=== PATIENT | female | born 1995 | race Caucasian/White ===

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

== ENCOUNTER 2017-02-15 17:52 | Outpatient (CLI) | payer SELFPAY ==
--- NOTE | 2017-02-17 11:50 | Physician Query-Final Dx ---
QIANA MENDIOLA 02/17/17 1150: Clinic Account Progress/Dx Physician Query: Please give diagnosis Date of Service Feb 15, 2017 at 17:52 ORESTES ESPOSITO MD 02/21/17 0736: Clinic Account Progress/Dx DIAGNOSIS: Diagnosis 1. IUP at 29 weeks, non-labor 2. Uterine irritability QIANA MENDIOLA Feb 17, 2017 11:50 ORESTES ESPOSITO MD Feb 21, 2017 07:36
== END 2017-02-15 18:42 | disposition home or self-care (01) ==
LOC: WSo 17:52 → LDRP 17:55 → WSo 18:42
PROVIDERS: ATTEND Family Medicine
DX: O99.89 Other specified diseases and conditions complicating pregnancy, childbirth and the puerperium (principal); N85.8 Other specified noninflammatory disorders of uterus; Z3A.29 29 weeks gestation of pregnancy
CPT/HCPCS: 99212

== ENCOUNTER → 2017-02-28 | Outpatient (CLI) | payer MEDICAID ==
--- NOTE | 2017-02-28 16:31 | Diagnostic Imaging Report ---
INDICATION: anatomy survey. TECHNIQUE: Multiple real-time grayscale images were obtained over the gravid uterus. COMPARISON: 10/15/2016 FINDINGS: There is a single live intrauterine with heart rate of 127 beats per minute. Fetus is in cephalic presentation. The placenta is anteriorly located. There is no placenta previa or abruption. anatomy survey was performed and the following structures were visualized and normal: Three-vessel cord, cerebral ventricles, cerebellum and cisterna magna, four-chamber heart, stomach, kidneys, urinary bladder, umbilical cord insertion. The spine and limbs were not well visualized due to positioning. Biometrical measurements are as follows: Biparietal 7.51 cm, age 30 weeks 1 days. Head circumference 27.15 cm, age 29 weeks 5 days. Abdominal circumference 26.48 cm, age 30 weeks 5 days. Femur length 5.7 cm, age 30 weeks 0 days. Sonographic estimate age: 30 weeks 1 days. Sonographic estimated date of delivery: 05/08/2017. Estimated Weight: 1537 gm (+/- 224 gm). LMP percentile: 94%. heart rate: 127 beats per minute. number: 1 of 1. IMPRESSION: 1. Normal anatomy survey with the exception of suboptimal visualization of the spine and limbs. 2. Please see above for biometric data. Dictated by: Dictated on workstation # [id number]
== END ==
LOC: RAD 13:45
PROVIDERS: ATTEND Family Medicine
DX: Z36 Encounter for antenatal screening of mother (principal); Z3A.30 30 weeks gestation of pregnancy
CPT/HCPCS: 76805

== ENCOUNTER 2017-03-22 12:32 | Outpatient (CLI) | payer MEDICAID ==
[~2017-03-22] VITALS: Ht 162.6 cm; Wt 71.4 kg
[2017-03-22 13:00] VITALS: BP 111/56
[2017-03-22 13:00] LABS: BILIRUBIN,URINE NEGATIVE (NEGATIVE); KETONES,URINE NEGATIVE (NEGATIVE); LEUKOCYTE ESTERASE ,URINE 2+ (NEGATIVE); NITRITE,URINE NEGATIVE (NEGATIVE); PH,URINE 6 (5-9); PROTEIN,URINE NEGATIVE (NEGATIVE); UROBILINOGEN,URINE NORMAL (NORMAL)
--- NOTE | 2017-03-25 13:30 | Physician Query-Final Dx ---
QIANA MENDIOLA 03/25/17 1330: Clinic Account Progress/Dx Physician Query: Please give diagnosis Date of Service Mar 22, 2017 at 12:32 MATHEUS JUAREZ MD 03/31/17 1309: Clinic Account Progress/Dx DIAGNOSIS: Diagnosis Contractions 3rd trimester Diarrhea with dehydration QIANA MENDIOLA Mar 25, 2017 13:30 MATHEUS JUAREZ MD Mar 31, 2017 13:09
== END 2017-03-22 13:45 | disposition home or self-care (01) ==
LOC: LDRP 12:32 → WSo 12:32
PROVIDERS: ATTEND Family Medicine
DX: O47.03 False labor before 37 completed weeks of gestation, third trimester (principal); Z3A.31 31 weeks gestation of pregnancy; R19.7 Diarrhea, unspecified; O99.283 Endocrine, nutritional and metabolic diseases complicating pregnancy, third trimester; E86.0 Dehydration
CPT/HCPCS: 81000; 87088; 99212

== ENCOUNTER 2017-04-01 21:36 | Outpatient (CLI) | payer MEDICAID ==
[~2017-04-01] VITALS: Ht 162.6 cm; Wt 73.1 kg
[2017-04-01 21:54] VITALS: BP 119/69
[2017-04-01 22:11] LABS: BILIRUBIN,URINE NEGATIVE (NEGATIVE); KETONES,URINE NEGATIVE (NEGATIVE); LEUKOCYTE ESTERASE ,URINE 3+ (NEGATIVE); NITRITE,URINE NEGATIVE (NEGATIVE); PH,URINE 6.5 (5-9); PROTEIN,URINE NEGATIVE (NEGATIVE); UROBILINOGEN,URINE NORMAL (NORMAL)
[2017-04-01] MEDS ORDERED: CEPHALEXIN 250 MG (KEFLEX) CAP PO ONE ×2 (22:59→23:15)
[2017-04-01] MEDS ORDERED: CEPH-507 PO (23:07)
--- NOTE | 2017-04-02 10:40 | Physician Query-Final Dx ---
THANG RAHMAN 04/02/17 1040: Clinic Account Progress/Dx Physician Query: Please give diagnosis Date of Service Apr 01, 2017 at 21:36 MATHEUS JUAREZ MD 04/04/17 1117: Clinic Account Progress/Dx DIAGNOSIS: Diagnosis Third trimester Cramping THANG RAHMAN Apr 02, 2017 10:40 MATHEUS JUAREZ MD Apr 04, 2017 11:17
[2017-05-14] MEDS ORDERED: BENZ56AE2 TP (08:32)
[2017-05-14] MEDS ORDERED: IBUP-1773 PO (08:32)
== END 2017-04-01 23:17 | disposition home or self-care (01) ==
LOC: LDRP 21:36 → WSo 21:36
PROVIDERS: ATTEND Family Medicine
DX: R10.2 Pelvic and perineal pain (principal); Z3A.33 33 weeks gestation of pregnancy
CPT/HCPCS: 81000; 87088; 99214

== ENCOUNTER 2017-04-18 14:40 | Outpatient (CLI) | payer MEDICAID ==
[~2017-04-18] VITALS: Ht 162.6 cm; Wt 75.3 kg
[2017-04-18 15:00] VITALS: BP 127/66
[2017-04-18 15:20] LABS: BILIRUBIN,URINE NEGATIVE (NEGATIVE); KETONES,URINE NEGATIVE (NEGATIVE); LEUKOCYTE ESTERASE ,URINE 1+ (NEGATIVE); NITRITE,URINE NEGATIVE (NEGATIVE); PH,URINE 6.5 (5-9); PROTEIN,URINE 1+ (NEGATIVE); UROBILINOGEN,URINE NORMAL (NORMAL)
[2017-04-18 15:36] VITALS: BP 118/56
[2017-04-18] MEDS ORDERED: RANI150T90 PO (16:12)
[2017-04-18] MEDS ORDERED: hydrOXYzine (VISTARIL) 25 MG CAP PO NR (16:15)
[2017-04-18] MEDS ORDERED: FLUC150T PO (16:20)
[2017-04-18 16:25] VITALS: BP 118/56
[2017-04-20] MEDS ORDERED: INFLUENZA TRIvalent 2017-2018 0.5 ML/45 MCG SYR IM ONE (09:00)
--- NOTE | 2017-04-21 14:20 | Physician Query-Final Dx ---
QIANA MENDIOLA 04/21/17 1420: Clinic Account Progress/Dx Physician Query: Please give diagnosis Date of Service Apr 18, 2017 at 14:40 HAO MCKOY DO 04/26/17 1655: Clinic Account Progress/Dx DIAGNOSIS: Diagnosis Threatened Labor QIANA MENDIOLA Apr 21, 2017 14:20 HAO MCKOY DO Apr 26, 2017 16:55
== END 2017-04-18 16:25 | disposition home or self-care (01) ==
LOC: WSo 14:40 → LDRP 14:43 → WSo 16:25
PROVIDERS: ATTEND Family Medicine
DX: O47.03 False labor before 37 completed weeks of gestation, third trimester (principal); Z3A.35 35 weeks gestation of pregnancy
CPT/HCPCS: 81000; 87088; 99213

== ENCOUNTER 2017-05-12 01:21 | Inpatient (IN) | payer MEDICAID ==
[~2017-05-12] VITALS: Ht 162.6 cm; Wt 80.3 kg
[2017-05-12] VITALS (52 sets, daily range): BP systolic 111–169; BP diastolic 55–89
[~2017-05-12 01:21] MED LIST changes: +FLUC150T PO; +RANI150T90 PO
[2017-05-12] MEDS ORDERED: INFLUENZA TRIvalent 2017-2018 0.5 ML/45 MCG SYR IM ONE (07:00)
[2017-05-12] MEDS ORDERED: LACTATED RINGERS 1,000 ML IV ONE ×3 (07:40→15:35)
[2017-05-12] MEDS ORDERED: D5 LR IV SOLUTION 1,000 ML IV ONE (07:40)
[2017-05-12] MEDS: D5 LR IV SOLUTION 1,000 ML IV SCH ×2 (08:15→16:00)
[2017-05-12] MEDS ORDERED: MINERAL OIL CONCENTRATE 99.9% 15 ML UDC TOP PRN (08:30)
[2017-05-12 08:34] LABS: BASOPHILS % (AUTO) 0 % (0-10); EOSINOPHILS # (AUTO) 0.3 10^3/uL (0.0-0.3); EOSINOPHILS % (AUTO) 2 % (0-10); LYMPHOCYTES # (AUTO) 3.5 X 10^3 (1.0-4.0); LYMPHOCYTES % (AUTO) 20 % (12-44); MEAN CORPUSCULAR HEMOGLOBIN 31 PG (25-34); MEAN CORPUSCULAR HGB CONC 35 G/DL (32-36); MEAN CORPUSCULAR VOLUME 90 FL (80-99); MEAN PLATELET VOLUME 10.8 FL (7.4-10.4); MONOCYTES # (AUTO) 1.4 X 10^3 (0.0-1.0); MONOCYTES % (AUTO) 8 % (0-12); NEUTROPHILS # (AUTO) 12.4 X 10^3 (1.8-7.8); NEUTROPHILS % (AUTO) 70 % (42-75); PLATELET COUNT 235 10^3/uL (130-400); RED BLOOD COUNT 3.82 10^6/uL (4.35-5.85); RED CELL DISTRIBUTION WIDTH 12.7 % (10.0-14.5); WHITE BLOOD COUNT 17.6 10^3/uL (4.3-11.0)
--- OUTSIDE RECORDS SUMMARY | 2017-05-12 08:50 | XMS REPORT ---
Author Author TAY FOURNIER [facility] Address [address] [place] [address] Care Team Providers Care Postal Transportation Clerk Name Role Phone TAY FOURNIER Unavailable PROBLEMS Type Condition ICD9-CM Code MVB34-ED Code Onset Dates Condition Status SNOMED Code Problem Excessive and frequent menstruation with irregular cycle N92.1 Active 713077864 Problem Alcohol dependence, uncomplicated F10.20 Active 46464135 Problem Subacute vaginitis N76.1 Active 77157238579814054 Problem Bipolar disorder, unspecified F31.9 Active 06301886 Problem Fatigue R53.83 Active 36387204 Problem Poor weight gain in adult R62.7 Active 15727182 Problem Mood disorder F39 Active 65530103 Problem High risk sexual behavior Z72.51 Active 170581850 ALLERGIES Unknown Allergies SOCIAL HISTORY No smoking Hx information available PLAN OF CARE VITAL SIGNS MEDICATIONS Unknown Medications RESULTS No Results PROCEDURES Procedure Date Ordered Related Diagnosis Body Site FLUARIX QUAD P-FREE 3 AND UP .50 2015Jul 10, 2016 SINGLE IMMUNIZATION ADMIN Jul 10, 2016 IMMUNIZATIONS Vaccine Route Administration Date Status FLUARIX QUAD P-FREE 3 AND UP .50 2015 IM Intramuscular Jul 10, 2016 Administered
--- OUTSIDE RECORDS SUMMARY | 2017-05-12 08:50 | XMS REPORT ---
Author Author DARIN TRIPATHI Organization [facility] Address [address] [place] [address] Care Team Providers Care Lead Installer Name Role Phone DARIN TRIPATHI Unavailable PROBLEMS Type Condition ICD9-CM Code MOC30-FB Code Onset Dates Condition Status SNOMED Code Problem Excessive and frequent menstruation with irregular cycle N92.1 Active 728781470 Problem Fatigue R53.83 Active 73305548 Problem Poor weight gain in adult R62.7 Active 18613032 Problem Alcohol dependence, uncomplicated F10.20 Active 36949436 Problem Dental examination Z01.20 Active 103554275 Problem Gastro-esophageal reflux disease without esophagitis K21.9 Active 282855554 Problem Mood disorder F39 Active 37560169 Problem High risk sexual behavior Z72.51 Active 815835507 Problem Subacute vaginitis N76.1 Active 33521593418101724 Problem Bipolar disorder, unspecified F31.9 Active 98923894 ALLERGIES Substance Reaction Event Type Date Status N.K.D.A. Unknown Non Drug Allergy Jul, Unknown SOCIAL HISTORY No smoking Hx information available PLAN OF CARE Activity Details Follow Up prn Reason: VITAL SIGNS Height 64 in 2016-08-07 Weight 122.8 lbs 2016-08-07 Temperature 98.2 degrees Fahrenheit 2016-08-07 Heart Rate 80 bpm 2016-08-07 Respiratory Rate 18 2016-08-07 BMI 21.08 kg/m2 2016-08-07 Blood pressure systolic 110 mmHg 2016-08-07 Blood pressure diastolic 70 mmHg 2016-08-07 MEDICATIONS Medication Instructions Dosage Frequency Start Date End Date Duration Status Diflucan 150 MG Orally Once a day 1 tablet 24h Jul, Jul, 7 days Active Flonase Allergy Relief 50 MCG/ACT Nasally twice per day 1 spray in each nostril Jul, 30 day(s) Active Cetirizine HCl 10 MG Orally Once a day 1 tablet 24h Jul, Aug, 30 day(s) Active RESULTS Name Result Date Reference Range CULTURE, GENITAL 2016-08-07 Genital Culture, Routine Final report Result 1 TRICHOMONAS (IN HOUSE) 2016-08-07 TRICHOMONAS Negative Control + Lot # [id number] Exp date 01/2017 UA LONG DIP (IN HOUSE) 2016-08-07 Lot # [id number] Exp date 2017 Clarity clear Color yellow Odor none GLU negative ALICIA negative KET negative SG >1.030 BLO negative pH 5.5 Protein negative URO 0.2 NIT negative LILY negative Lot # [id number] Exp date 2017 08 BACTERIAL VAGINOSIS (IN HOUSE) 2016-08-07 RESULTS Negative Control + Lot # [id number] Exp date 11/2016 GC/CHLAM URINE (STATE) 2016-08-07 CHLAMYDIA Negative GC Negative PROCEDURES Procedure Date Ordered Related Diagnosis Body Site URINALYSIS, AUTO, W/O SCOPE Aug 07, 2016 [place] VAG, DNA, DIR PROBE Aug 07, 2016 Office Visit, Est Pt., Level 3 Aug 07, 2016 LAB NOT BILLED BY [facility] Aug 07, 2016 IMMUNIZATIONS No Known Immunizations
[2017-05-12 09:14] LABS: BAND NEUTROPHILS 6 %; EOSINOPHILS % (MANUAL) 2 %; LYMPHOCYTES % (MANUAL) 24 %; NEUTROPHILS % (MANUAL) 61 %
--- NOTE | 2017-05-12 11:36 | Progress Note (SOAP) ---
Subjective Subjective/Events-last exam Pt presented to labor and delivery earlier this morning with report of regular and painful contractions. She has slowly made cervical change, and had good bloody show. She reports the contractions are painful, but tolerable. She reports that she feels good movement. , 38 6/7 wks gestation, obstetric care provided by Dr. Schultz. Review of Systems Date Seen by Provider: May 12, 2017 Time Seen by Provider: 07:45 General: No Chills, No Night Sweats, No Fatigue HEENT: No Head Aches, No Visual Changes, No Eye Pain, No Ear Pain, No Dysphasia Pulmonary: No Dyspnea, No Cough Cardiovascular: Edema (trace), No: Chest Pain, Palpitations Gastrointestinal: No: Nausea, Vomiting, Abdominal Pain, Diarrhea Genitourinary: No Dysuria, No Frequency Musculoskeletal: back pain Neurological: No: Weakness, Numbness, Incoordination, Change in speech, Seizures Objective Exam Last Set of Vital Signs Vital Signs Date Time Temp Pulse Resp B/P (MAP) Pulse Ox O2 Delivery O2 Flow Rate FiO2 05/12/17 09:48 97 20 137/67 05/12/17 07:50 98.6 05/12/17 04:58 Room Air Capillary Refill : General: Alert, Oriented X3, Cooperative, No Acute Distress HEENT: Atraumatic, PERRLA, EOMI, Mucous Memb Moist/[place] Neck: Supple, No Thyromegaly Extremities: No Clubbing, No Cyanosis, Normal Pulses, No Tenderness/Swelling Skin: No Rashes, No Significant Lesion Neuro: Normal Gait, Normal Speech, Normal Tone, Sensation Intact Psych/Mental Status: Mental Status NL, Mood NL Other physical findings Palpable movement. Contractions palpate moderate to strong every 2-7 minutes. SVE 4-5/90/0 with BBOW and good bloody show. Results/Procedures Lab Laboratory Tests 05/12/17 07:55: White Blood Count 17.6H, Red Blood Count 3.82L, Hemoglobin 11.8, Hematocrit 34L , Mean Corpuscular Volume 90, Mean Corpuscular Hemoglobin 31, Mean Corpuscular Hemoglobin Concent 35, Red Cell Distribution Width 12.7, Platelet Count 235, Mean Platelet Volume 10.8H, Neutrophils (%) (Auto) 70, Lymphocytes (%) (Auto) 20 , Monocytes (%) (Auto) 8, Eosinophils (%) (Auto) 2, Basophils (%) (Auto) 0, Neutrophils # (Auto) 12.4H, Lymphocytes # (Auto) 3.5, Monocytes # (Auto) 1.4H, Eosinophils # (Auto) 0.3, Basophils # (Auto) 0.0, Neutrophils % (Manual) 61, Lymphocytes % (Manual) 24, Monocytes % (Manual) 7, Eosinophils % (Manual) 2, Band Neutrophils 6, Blood Morphology Comment NORMAL Assessment/Plan Assessment/Plan Admission Dx Active Labor Term Gestation, 38 6/7 wks Teen Plan -, head well applied to cervix. Dr. Schultz notified. FHR reassuring and reactive. Patient reports that she is not planning to have an epidural. Clinical Quality Measures DVT/VTE Risk/Contraindication: Risk Factor Score Per Nursin RFS Level Per Nursing on Admit: 1=Low/No VTE PPX HAO MCKOY DO May 12, 2017 11:36
--- NOTE | 2017-05-12 11:44 | Progress Note (SOAP) ---
Subjective Subjective/Events-last exam Pt reports that contractions remain painful, but she is tolerating them well. Minimal change in SVE over the last [address] Schultz has been updated and requested AROM -- patient is agreeable. FHR reassuring and reactive, somewhat difficult to trace based on maternal size and position. Review of Systems Date Seen by Provider: May 12, 2017 Time Seen by Provider: 11:13 General: No Chills, No Night Sweats, No Fatigue HEENT: No Head Aches, No Visual Changes, No Eye Pain, No Ear Pain, No Sore Throat Pulmonary: No Dyspnea, No Cough Cardiovascular: No: Chest Pain, Palpitations, Lt Headedness Gastrointestinal: No: Nausea, Vomiting, Diarrhea, Constipation Genitourinary: No Dysuria, No Frequency Musculoskeletal: back pain Neurological: No: Weakness, Numbness, Incoordination, Confusion Objective Exam Last Set of Vital Signs Vital Signs Date Time Temp Pulse Resp B/P (MAP) Pulse Ox O2 Delivery O2 Flow Rate FiO2 05/12/17 09:48 97 20 137/67 05/12/17 07:50 98.6 05/12/17 04:58 Room Air Capillary Refill : General: Alert, Oriented X3, Cooperative, No Acute Distress HEENT: Atraumatic, EOMI, Mucous Memb Moist/[place] Neck: Supple, No Thyromegaly Abdomen: Soft, No Tenderness, No Hepatosplenomegaly Extremities: No Clubbing, No Cyanosis, Normal Pulses Skin: No Rashes, No Significant Lesion Neuro: Normal Gait, Normal Speech, Strength at 5/5 X4 Ext, Normal Tone, Sensation Intact Psych/Mental Status: Mental Status NL, Mood NL Other physical findings SVE 6/95/0, head well applied. AROM with small amount of clear fluid noted. FSE placed without difficulty to make the tracing of FHR easier and more accurate. Results/Procedures Lab Laboratory Tests 05/12/17 07:55: White Blood Count 17.6H, Red Blood Count 3.82L, Hemoglobin 11.8, Hematocrit 34L , Mean Corpuscular Volume 90, Mean Corpuscular Hemoglobin 31, Mean Corpuscular Hemoglobin Concent 35, Red Cell Distribution Width 12.7, Platelet Count 235, Mean Platelet Volume 10.8H, Neutrophils (%) (Auto) 70, Lymphocytes (%) (Auto) 20 , Monocytes (%) (Auto) 8, Eosinophils (%) (Auto) 2, Basophils (%) (Auto) 0, Neutrophils # (Auto) 12.4H, Lymphocytes # (Auto) 3.5, Monocytes # (Auto) 1.4H, Eosinophils # (Auto) 0.3, Basophils # (Auto) 0.0, Neutrophils % (Manual) 61, Lymphocytes % (Manual) 24, Monocytes % (Manual) 7, Eosinophils % (Manual) 2, Band Neutrophils 6, Blood Morphology Comment NORMAL Assessment/Plan Assessment/Plan Admission Dx Active Labor Term Gestation, 38 6/7 wks Teen Plan 0745: 4-/0, head well applied to cervix. Dr. Schultz notified. FHR reassuring and reactive. Patient reports that she is not planning to have an epidural. Breathing well through contractions. 11:00: SVE by RN - bloody show, but no significant chnage from prior exam. Patient would like to try and speed things up. Dr. Schultz contacted, notified that minimal cervical change from last exam. Okay to AROM. 11:13: SVE 6/95/0, AROM with amnihook and small amount of clear fluid with mild blood tinge noted. FSE placed per nurse request; difficulty tracing FHR due to maternal size and position. Placed without difficulty. Dr. Schultz updated. Will manage patient from this point on. Clinical Quality Measures DVT/VTE Risk/Contraindication: Risk Factor Score Per Nursin RFS Level Per Nursing on Admit: 1=Low/No VTE PPX HAO MCKOY DO May 12, 2017 11:44
[2017-05-12] MEDS ORDERED: CATHETER FLUSH 10 ML SYR IV SCH ×2 (14:00→22:00)
[2017-05-12] MEDS ORDERED: SUFENTA 0.6MCG/ML BUPIVA 0.125 100 ML ONE (14:06)
[2017-05-12] MEDS ORDERED: BUPIVACAINE 0.25% 30 ML (SENSORCAINE) VIAL ONE (14:51)
[2017-05-12] MEDS ORDERED: LIDOCAINE PF 2% 5 ML (XYLOCAINE) VIAL ONE (14:51)
[2017-05-12] MEDS ORDERED: fentaNYL INJECTION 100 MCG/2 ML AMP ONE (14:51)
[2017-05-12] MEDS ORDERED: EPIDURAL (SUFENTA 0.6MCG/ML BUPIVA 0.125%) 100 ML BAG EPI PRN (15:45)
[2017-05-12] MEDS ORDERED: ONDANSETRON 4 MG/2 ML (SDV) Z0FRAN IV PRN (15:45)
[2017-05-12] MEDS ORDERED: NALOXONE 0.4 MG/ML 1 ML (NARCAN) VIAL IV PRN (15:45)
[2017-05-12] MEDS ORDERED: OXYTOCIN/NORMAL SALINE 500 ML IV SCH ×2 (16:00→20:28)
[2017-05-12] MEDS ORDERED: LIDOCAINE/EPI 2% 1:200,00 (XYLOCAINE) 10 ML VIAL ONE (19:02)
--- NOTE | 2017-05-12 20:17 | History & Physical-OB ---
OB - Chief Complaint & HPI Date/Time Date of Admission: Date of Admission: May 12, 2017 at 07:50 Time Seen by Provider: 18:02 Chief Complaint/History OB-Reason for Admission/Chief: Onset of Labor Hx : 1 Hx Para: 0 Expected Date of Delivery: May 20, 2017 Gestational Age in Weeks: 38 Allergies and Home Medications Allergies Coded Allergies: No Known Drug Allergies (Unverified , 12/05/13) Home Medications Pnv95/Ferrous Fumarate/FA 1 Each Tablet, 1 EACH PO DAILY, (Reported) Ranitidine HCl 150 Mg Tablet, 150 MG PO TID, (Reported) OB - History Hx of Present Care: Yes Information Induced Hypertension: No Maternal Gestational Diabetes: No Hemorrhage: No Obstetrical History Hx : 1 Hx Para: 0 Hx Total # of Abortions (Spona: 0 Delivery History Hx Blood Disorders: No Adverse Rxn to Tranfusion: No Patient Past Medical History DEPRESSION PTSD Social History/Family History HIV/AIDS: No Recent Infectious Disease Expo: No Sexually Transmitted Disease: No Alcohol Use: Denies Use Recreational Drug Use: No Immunizations Hepatitis A: Yes Hepatitis B: Yes Tetanus Booster (TDap): Less than 5yrs (03/13/17) Rubella: immune RPR/VDRL: Negative GBS Status: Negative HBsAG: Negative OB - Admission Exam Physical Exam Vitals: Vital Signs 05/12/17 05/12/17 16:50 18:30 Temp 97.8 Pulse 96 Resp 20 B/P (MAP) 115/56 Pulse Ox 98 O2 Delivery Room Air HEENT: NCAT Heart: Rhythm Normal Lungs: Clear Abdomen: Soft Extremities: Normal Reflexes: Normal Cervical Dilatation: 8cm Effacement: 100% Station: 0 Membranes: Ruptured Amniotic Fluid: Clear Accelerations: Accelerations Present Decelerations: No Decelerations Manager Search Variability: Average (6-25) Contractions on Admission: < 5 Minutes Apart Labs Laboratory Tests Test 05/12/17 07:55 Range/Units White Blood Count 17.6 H 4.3-11.0 10^3/uL Red Blood Count 3.82 L 4.35-5.85 10^6/uL Hemoglobin 11.8 11.5-16.0 G/DL Hematocrit 34 L 35-52 % Mean Corpuscular Volume 90 80-99 FL Mean Corpuscular Hemoglobin 31 25-34 PG Mean Corpuscular Hemoglobin Concent 35 32-36 G/DL Red Cell Distribution Width 12.7 10.0-14.5 % Platelet Count 235 130-400 10^3/uL Mean Platelet Volume 10.8 H 7.4-10.4 FL Neutrophils (%) (Auto) 70 42-75 % Lymphocytes (%) (Auto) 20 12-44 % Monocytes (%) (Auto) 8 0-12 % Eosinophils (%) (Auto) 2 0-10 % Basophils (%) (Auto) 0 0-10 % Neutrophils # (Auto) 12.4 H 1.8-7.8 X 10^3 Lymphocytes # (Auto) 3.5 1.0-4.0 X 10^3 Monocytes # (Auto) 1.4 H 0.0-1.0 X 10^3 Eosinophils # (Auto) 0.3 0.0-0.3 10^3/uL Basophils # (Auto) 0.0 0.0-0.1 10^3/uL Neutrophils % (Manual) 61 % Lymphocytes % (Manual) 24 % Monocytes % (Manual) 7 % Eosinophils % (Manual) 2 % Band Neutrophils 6 % Blood Morphology Comment NORMAL OB - Assessment/Plan/Diagnosis Assessment Assessment: active labor Plan Plan: Expectant Management Other Plan 21 yo G1 @ 38.6 wga here for active labor Plan - Epidural, pain well controlled - Started Pit at 4 PM - Expectant management for vaginal delivery - GBS neg Copy Copies To 1: MATHEUS JUAREZ MD, HOLLY R MD May 12, 2017 20:17
[2017-05-12] MEDS ORDERED: WITCH HAZEL(TUCKS) 40 EA JAR TOP PRN (20:30)
[2017-05-12] MEDS ORDERED: BENZOCAINE/MENTHOL (DERMOPLAST) 56 ML CAN TP PRN (20:30)
--- NOTE | 2017-05-12 20:36 | OB Labor & Delivery Record ---
Vag Delivery Note Vag Delivery Note Date of Delivery: 05/12/17 Preoperative Diagnosis: Kerry Apodaca is a (21 /Para 1 / 0,Gestational Age (wks)38.6with onset of labor Postoperative Diagnosis: Same Surgeon: MATHEUS JUAREZ Sales Representative Sales Manager: [Atif Mace, MS3] Anesthesia: [Epidural] Delivery Type: [ augmented with Pitocin] Findings: [Term male , intact placenta, 1st degree perineal tear] Viable [male] , apgars [8/9], weight [3770 grams/ 8#5] Lacerations: 1st degree perineal tear that did not require repair Intact placenta with 3 vessel cord. No nuchal cord, body cord or shoulder dystocia Pitocin started at delivery of for hemorrhage prophylaxis Estimated Blood Loss: [200] ml Complications: None Condition: Stable Description of Procedure: The patient is a G1 now P1 @ 38.6 wga who presented in active labor. She was admitted and informed consent was obtained. Her labor course was remarkable for normal course. She progressed to complete dilatation and began to push. She was then set up for delivery. The 's head was delivered atraumatically in the STEPHANY position. The shoulders and remainder of the 's body were then delivered without difficulty. Upon delivery, the head was held below the level of the perineum and the mouth and nares were bulb suctioned. placed on mother's abdomen. The cord was doubly clamped after 1 min of delayed cord clamping. An intact placenta with 3-vessel cord delivered via Jana and there was found to be minimal bleeding.~ Vigorous fundal massage was performed and the fundus was found to be firm. IV oxytocin was given wide open. Examination of the vagina and perineum revealed a 1st degree perineal laceration that did not require repair. Following the repair, sponge, instrument and needle counts were correct. Mom and baby were both in stable condition in the labor suite. Vitals - Labs Vital Signs - I&O Vital Signs Date Time Temp Pulse Resp B/P (MAP) Pulse Ox O2 Delivery O2 Flow Rate FiO2 05/12/17 18:30 96 20 115/56 98 Room Air 05/12/17 18:15 86 20 148/63 98 Room Air 05/12/17 17:50 95 20 125/71 98 Room Air 05/12/17 17:35 97 20 130/59 97 Room Air 05/12/17 17:20 91 18 130/59 98 Room Air 05/12/17 17:05 83 16 120/68 98 Room Air 05/12/17 16:50 97.8 88 16 126/60 97 Room Air 05/12/17 16:35 83 18 136/63 97 Room Air 05/12/17 16:30 90 18 169/67 98 Room Air 05/12/17 16:15 86 18 169/67 Room Air 05/12/17 16:10 90 18 116/65 98 Room Air 05/12/17 16:00 85 18 130/78 98 Room Air 05/12/17 15:50 96 16 137/60 98 Room Air 05/12/17 15:45 93 16 122/58 98 Room Air 05/12/17 15:40 95 16 123/69 99 Room Air 05/12/17 15:35 98 16 121/66 99 Room Air 05/12/17 15:30 84 18 120/65 97 Room Air 05/12/17 15:25 79 18 113/55 98 Room Air 05/12/17 15:20 71 20 121/58 98 Room Air 05/12/17 15:15 86 20 160/70 94 Room Air 05/12/17 15:10 97 22 141/77 99 Room Air 05/12/17 14:45 94 18 133/62 05/12/17 14:30 109 18 155/87 05/12/17 14:15 85 18 127/70 05/12/17 14:00 89 18 125/69 05/12/17 13:45 87 18 122/66 05/12/17 13:30 85 20 125/66 05/12/17 13:15 102 20 117/89 05/12/17 13:00 120 20 157/74 05/12/17 12:45 97.8 95 18 138/58 05/12/17 12:15 95 18 138/58 05/12/17 12:00 95 18 138/58 05/12/17 11:50 93 18 129/79 05/12/17 11:30 93 18 132/87 05/12/17 11:20 89 18 133/70 05/12/17 10:50 94 20 124/82 05/12/17 10:20 85 20 117/57 05/12/17 09:48 97 20 137/67 05/12/17 09:20 88 20 129/60 05/12/17 08:50 88 20 111/80 05/12/17 07:50 98.6 86 20 117/65 05/12/17 04:58 81 18 149/70 Room Air 05/12/17 01:33 98.1 88 18 140/78 Room Air I & O 05/13/17 07:00 Intake Total 2000 ml Balance 2000 ml Labs Laboratory Tests 05/12/17 07:55: White Blood Count 17.6H, Red Blood Count 3.82L, Hemoglobin 11.8, Hematocrit 34L , Mean Corpuscular Volume 90, Mean Corpuscular Hemoglobin 31, Mean Corpuscular Hemoglobin Concent 35, Red Cell Distribution Width 12.7, Platelet Count 235, Mean Platelet Volume 10.8H, Neutrophils (%) (Auto) 70, Lymphocytes (%) (Auto) 20 , Monocytes (%) (Auto) 8, Eosinophils (%) (Auto) 2, Basophils (%) (Auto) 0, Neutrophils # (Auto) 12.4H, Lymphocytes # (Auto) 3.5, Monocytes # (Auto) 1.4H, Eosinophils # (Auto) 0.3, Basophils # (Auto) 0.0, Neutrophils % (Manual) 61, Lymphocytes % (Manual) 24, Monocytes % (Manual) 7, Eosinophils % (Manual) 2, Band Neutrophils 6, Blood Morphology Comment NORMAL MATHEUS JUAREZ MD May 12, 2017 20:36
[2017-05-12] MEDS: IBUPROFEN 600 MG (MOTRIN) TAB PO SCH (21:58)
[2017-05-13 03:56] VITALS: BP 122/62
[2017-05-13] MEDS: IBUPROFEN 600 MG (MOTRIN) TAB PO SCH ×4 (03:56→22:22)
[2017-05-13 05:47] LABS: BASOPHILS % (AUTO) 0 % (0-10); EOSINOPHILS # (AUTO) 0.2 10^3/uL (0.0-0.3); EOSINOPHILS % (AUTO) 1 % (0-10); LYMPHOCYTES # (AUTO) 2.8 X 10^3 (1.0-4.0); LYMPHOCYTES % (AUTO) 17 % (12-44); MEAN CORPUSCULAR HEMOGLOBIN 32 PG (25-34); MEAN CORPUSCULAR HGB CONC 35 G/DL (32-36); MEAN CORPUSCULAR VOLUME 90 FL (80-99); MEAN PLATELET VOLUME 10.2 FL (7.4-10.4); MONOCYTES # (AUTO) 1.5 X 10^3 (0.0-1.0); MONOCYTES % (AUTO) 9 % (0-12); NEUTROPHILS # (AUTO) 11.7 X 10^3 (1.8-7.8); NEUTROPHILS % (AUTO) 73 % (42-75); PLATELET COUNT 197 10^3/uL (130-400); RED BLOOD COUNT 3.23 10^6/uL (4.35-5.85); RED CELL DISTRIBUTION WIDTH 12.6 % (10.0-14.5); WHITE BLOOD COUNT 16.2 10^3/uL (4.3-11.0)
--- NOTE | 2017-05-13 08:44 | Progress Note (SOAP) ---
Subjective Subjective/Events-last exam Patient reports that she is feeling well and that she is not having any significant pain other than some mild uterine cramping, which is helped by ibuprofen. She is , and is working with the php consultant. The patient reports that she is planning to use Depo injections for control. Denies other complaints or concerns. Reports that she is ambulating without difficulty, voiding without difficulty and eating and drinking without nausea or vomiting. Review of Systems Date Seen by Provider: May 13, 2017 Time Seen by Provider: 10:30 General: No Chills, No Night Sweats, No Fatigue HEENT: No Head Aches, No Visual Changes, No Eye Pain, No Ear Pain, No Sore Throat Pulmonary: No Dyspnea, No Cough Cardiovascular: No: Chest Pain, Palpitations, Lt Headedness Gastrointestinal: No: Nausea, Vomiting, Abdominal Pain Genitourinary: No Dysuria, No Frequency Musculoskeletal: No: neck pain, back pain Neurological: No: Weakness, Numbness, Incoordination, Change in speech, Confusion, Seizures Objective Exam Last Set of Vital Signs Vital Signs Date Time Temp Pulse Resp B/P (MAP) Pulse Ox O2 Delivery O2 Flow Rate FiO2 05/13/17 03:56 98.5 99 18 122/62 Room Air 05/12/17 18:30 98 Capillary Refill : General: Alert, Oriented X3, Cooperative, No Acute Distress HEENT: Atraumatic, EOMI, Mucous Memb Moist/[place] Neck: Supple, No JVD, No Thyromegaly Lungs: Clear to Auscultation, Normal Air Movement Heart: Regular Rate, Normal S1, Normal S2 Abdomen: Normal Bowel Sounds, Soft, No Hepatosplenomegaly, Other (post gravid) Extremities: No Clubbing, No Cyanosis, Normal Pulses, No Tenderness/Swelling, Other (neg patsy's bilaterally) Skin: No Rashes, No Significant Lesion Neuro: Normal Gait, Normal Speech, Normal Tone, Sensation Intact, Cranial Nerves 3-12 NL Psych/Mental Status: Mental Status NL, Mood NL Results/Procedures Lab Laboratory Tests 05/13/17 05:40: White Blood Count 16.2H, Red Blood Count 3.23L, Hemoglobin 10.2L, Hematocrit 29L , Mean Corpuscular Volume 90, Mean Corpuscular Hemoglobin 32, Mean Corpuscular Hemoglobin Concent 35, Red Cell Distribution Width 12.6, Platelet Count 197, Mean Platelet Volume 10.2, Neutrophils (%) (Auto) 73, Lymphocytes (%) (Auto) 17 , Monocytes (%) (Auto) 9, Eosinophils (%) (Auto) 1, Basophils (%) (Auto) 0, Neutrophils # (Auto) 11.7H, Lymphocytes # (Auto) 2.8, Monocytes # (Auto) 1.5H, Eosinophils # (Auto) 0.2, Basophils # (Auto) 0.0 Assessment/Plan Assessment/Plan Admission Dx Active Labor Term Gestation Teen Plan Patient now 1 day s/p spontaneous vaginal delivery over first degree perineal laceration of 8 lb 5 oz male infant without difficulty. She is with assistance from php consultant. She has mild pain and cramping, which she reports is well controlled by Motrin. She is ambulating and voiding without difficulty and tolerating a regular diet. She is planning to use Depo for control. Continue routine care, anticipate discharge to home with infant tomorrow. Clinical Quality Measures DVT/VTE Risk/Contraindication: Risk Factor Score Per Nursin RFS Level Per Nursing on Admit: 1=Low/No VTE PPX HAO MCKOY DO May 13, 2017 08:43
[2017-05-13] MEDS ORDERED: INFLUENZA TRIvalent 2017-2018 0.5 ML/45 MCG SYR IM ONE (08:46)
[2017-05-13 08:59] VITALS: BP 116/70
[2017-05-13 13:14] VITALS: BP 128/72
--- NOTE | 2017-05-13 14:59 | Anesthesia-Regional Post-Op ---
Regional Patient Condition Mental Status: Alert, Oriented x3 Circulation: Same as Pre-Op Headache: Absent Sensation: Full Recovery Motor Block: Absent Post Op Complications Complications None Follow Up Care/Instructions Patient Instructions None needed. Anesthesia/Patient Condition Patient is doing well, no complaints, stable vital signs, no apparent adverse anesthesia problems. No complications reported per nursing. ANA HASKINS CRNA May 13, 2017 14:59
[2017-05-13 16:21] VITALS: BP 117/59
[2017-05-13 21:00] VITALS: BP 129/60
[2017-05-14 02:00] VITALS: BP 123/71
[2017-05-14] MEDS: IBUPROFEN 600 MG (MOTRIN) TAB PO SCH ×2 (04:41→09:40)
[2017-05-14 08:00] VITALS: BP 113/67
--- NOTE | 2017-05-14 08:30 | Discharge Summary ---
Diagnosis/Chief Complaint Date of Admission May 12, 2017 at 07:50 Date of Discharge 05/14/17 Admission Diagnosis Admission Diagnosis Active Labor Term Gestation Discharge Diagnosis Spontaneous Vaginal Delivery Chief Complaint/HPI Chief Complaint/HPI 21 yr old G1 now P1 delivered viable male at 38 6/7 wks gestation over 1st degree perineal laceration with epidural anesthesia and without complication. Her course has been uncomplicated and she has been tolerating her by mouth medication well and it has been working to control her pain. She is breast-feeding her infant and has been working with the well to latch and feed him as appropriate. She has met with the social media developer and reports that she has good family support in place and has all resources needed for discharge. We will plan to discharge her to home later today with her infant with plans to follow-up with Dr. Schultz in the office, as the patient has a history of intentional overdose, we will have the patient follow up with Dr. Schultz in the office in 2 weeks for a depression screen and a routine follow-up in 6 weeks.. Discharge Summary-Simple/Stand Procedures Epidural Spontaneous Vaginal Delivery Consultations Anesthesia - Epidural Discharge Physical Examination Allergies: Coded Allergies: No Known Drug Allergies (Unverified , 12/05/13) Vitals & I&Os Vital Sign - Last 12Hours Date Time Temp Pulse Resp B/P (MAP) Pulse Ox O2 Delivery O2 Flow Rate FiO2 05/14/17 02:00 96.5 91 18 123/71 98 Room Air General Appearance: Alert, Oriented X3, Cooperative, No Acute Distress HEENT: Atraumatic, EOMI, Mucous Memb Moist/[place] Respiratory: Clear to Auscultation, Normal Air Movement Cardiovascular: Regular Rate, Normal S1, Normal S2 Abdominal: Normal Bowel Sounds, Soft, No Tenderness, No Masses, Other (post gravid) Extremities: No Clubbing, No Cyanosis, Normal Pulses, No Tenderness/Swelling, Other (negative patsy's) Skin: No Rashes, No Breakdown, No Significant Lesion Neuro: Normal Gait, Normal Speech, Normal Tone, Sensation Intact, Cranial Nerves 3-12 NL Psych/Mental Status: Mental Status NL, Mood NL Hospital Course See final discharge diagnosis. Discussion & Recommendations The patient has had an uncomplicated and routine course. She denies any feelings of self-harm or thoughts of harming others. The patient does have a history of self harming behavior and therefore we will have her follow up with Dr. Schultz in the office in 2 weeks for a depression screen as she is at higher risk based on her history as well as her age. We will then have her follow-up with Dr. Schultz in 6 weeks for routine follow-up, sooner if needed. Discharge Condition at discharge Stable Instructions to patient/family Please see electronic discharge instructions given to patient. Discharge Medications Reviewed and agree with Discharge Medication list on patient's Discharge Instruction sheet Clinical Quality Measures DVT/VTE Risk/Contraindication: Risk Factor Score Per Nursin RFS Level Per Nursing on Admit: 1=Low/No VTE PPX Copy Copies To 1: MATHEUS SCHULTZ MD, MARGARET E DO May 14, 2017 08:30
[2017-05-14] MEDS ORDERED: BENZ56AE2 TP (08:32)
[2017-05-14] MEDS ORDERED: IBUP-1773 PO (08:32)
--- NOTE | 2017-05-14 08:35 | Discharge Instructions ---
Discharge Inst-[facility] Depart Medications New, Converted or Re-Newed RX: Transmitted to Pharmacy Final Diagnosis Vaginal Delivery of Term New Medications: Benzocaine/Menthol (Dermoplast [place]) 56 Gm Aerosol 56 ML TP UD PRN for PAIN- SEE INSTRUCTIONS for 14 Days, #56 ML 0 Refills apply topically as needed for perineal discomfort Ibuprofen (Ibuprofen) 600 Mg Tablet 600 MG PO Q6H PRN for PAIN-MODERATE MDD 4 tabs for 14 Days, #45 TAB 1 Refill Continued Medications: Pnv95/Ferrous Fumarate/FA ( [place]) 1 Each Tablet 1 EACH PO DAILY, TAB Ranitidine HCl (Acid Utility Sales And Service Manager (RANITIDINE)) 150 Mg Tablet 150 MG PO TID, TAB Follow Up/Instructions Goal/Follow Up: Follow up with Dr. Schultz in 2 weeks in the office for Depression Screen Follow up with Dr. Schultz in the office in 6 weeks for routine follow up Patient Instructions: Contact the office if 1fever >101 unrelieved by tylenol, pain unrelieved by medications, heavy bleeding that saturates more than 1 pad per hour for 2 hours in a row, passing clots larger than the size of your fist, foul smelling vaginal discharge or odor, or any other complaints or concerns Activity Activity: Activity as Tolerated Driving Instructions: You May Drive NO SMOKING: NO SMOKING Nothing Inside Vagina: No Douching, No [place], No Tampons Diet Discharge Diet: No Restrictions Return to The Hospital For: fever >101 unrelieved by tylenol, pain unrelieved by medications, heavy bleeding that saturates more than 1 pad per hour for 2 hours in a row, passing clots larger than the size of your fist, foul smelling vaginal discharge or odor, or any other complaints or concerns Symptoms to Report to : Bleeding Excessive, Eyesight Changes, Pain Increased , Fever Over 101 Degrees F, Pain/Pressure in Chest, Urination Difficulty, Pain/ Pressure in Jaw, Vaginal Bleeding Increase, Lightheadedness, Pain/Pressure in Shoulder, Vaginal Discharge Foul, Memory Changes Suddenly, Questions/Concerns, Dizziness/Fainting, Shortness of Breath For Any Problems or Questions: Contact Your Physician Skin/Wound Care Bathing Instructions: Tub, Shower Copies To 1: MATHEUS SCHULTZ MD, MARGARET E DO May 14, 2017 08:35
[2017-05-14 11:00] VITALS: BP 110/57
== END 2017-05-14 18:20 | disposition home or self-care (01) | DRG 775 ==
LOC: LDRP 01:21 → WSo 01:21 → LDRP 07:50 → WSo 07:50 → LDRP 22:30
PROVIDERS: ADMIT Family Medicine; ATTEND Family Medicine
PROC: 10E0XZZ Delivery of Products of Conception, External Approach (ICD-10-PCS; principal; 2017-05-12)
DX: O80 Encounter for full-term uncomplicated delivery (principal); Z37.0 Single live birth; Z3A.38 38 weeks gestation of pregnancy
CPT/HCPCS: 36415; 85007; 85025; 85027; 86850; 86900; 86901; 99212

== ENCOUNTER 2017-12-27 23:22 | Emergency (ER) | payer SELFPAY ==
[~2017-12-27] VITALS: Ht 162.6 cm; Wt 59.0 kg
[~2017-12-27 23:22] MED LIST changes: +BENZ56AE2 TP; +IBUP-1773 PO
--- NOTE | 2017-12-28 00:12 | ED EENT ---
History of Present Illness General Chief Complaint: Oral/Throat Problems Stated Complaint: SWOLLEN TONGUE SORE THROAT COUGH Nursing Triage Note: PT TO ED 6 W/ C/O SORE THROAT. DENIES TAKING ANYTHING FOR PAIN. Source: patient Exam Limitations: no limitations History of Present Illness Date Seen by Provider: Dec 28, 2017 Time Seen by Provider: 23:34 Initial Comments C/O COUGH, CONGESTION AND SORE THROAT FOR 2 WEEKS NO FEVER NO PROBLEMS SWALLOWING HAS NOT TAKEN ANYTHING FOR SYMPTOMS AT ANY TIME HAS NOT SOUGHT CARE UNTIL TONIGHT SYMPTOMS NO DIFFERENT TONIGHT 8 MONTH OLD CHILD HAS HAD THE SAME SYMPTOMS, BUT HAS ALSO HAD FEVER--NO LONGER RUNNING FEVER. THINKS CHILD HAS ALLERGIES AND HAS BEEN TEETHING HAS NOT SOUGHT CARE FOR CHILD AT ANY TIME PT IS NURSING. PCP: JIM Allergies and Home Medications Allergies Coded Allergies: No Known Drug Allergies (Unverified , 12/05/13) Home Medications Amoxicillin 875 Mg Tablet, 875 MG PO BID Prescribed by: JOSE COHEN on 12/28/17 0014 Benzocaine/Menthol 56 Gm Aerosol, 56 ML TP UD PRN for PAIN- SEE INSTRUCTIONS apply topically as needed for perineal discomfort Prescribed by: HAO MCKOY on 05/14/17 0832 Fluticasone Propionate 9.9 Ml Valent[place].susp, 2 SPRAYS NS BID Prescribed by: JOSE COHEN on 12/28/17 0014 Ibuprofen 600 Mg Tablet, 600 MG PO Q6H PRN for PAIN-MODERATE Prescribed by: HAO MCKOY on 05/14/17 0832 Pnv95/Ferrous Fumarate/FA 1 Each Tablet, 1 EACH PO DAILY, (Reported) Ranitidine HCl 150 Mg Tablet, 150 MG PO TID, (Reported) Patient Home Medication List Home Medication List Reviewed: Yes Review of Systems Constitutional: no symptoms reported Eyes: No Symptoms Reported Ears: No Symptoms Reported Nose: see HPI, congestion; denies pain Mouth: no symptoms reported Throat: see HPI, pain; denies discharge, denies neck stiffness, denies hoarse, denies aphonia, denies muffled, denies difficulty with fluids Respiratory: no symptoms reported Cardiovascular: no symptoms reported Gastrointestinal: no symptoms reported : No (LMP--NONE SINCE DELIVERY--IS ON DEPO-PROVERA--IS DUE NOW FOR NEXT SHOT) Musculoskeletal: no symptoms reported Skin: no symptoms reported Neurological: No Symptoms Reported Hematologic/Lymphatic: No Symptoms Reported Immunological/Allergic: no symptoms reported Past Keszprg-Otvqdf-Haeimg Hx Patient Social History Alcohol Use: Occasionally Uses Number of Drinks Today: FF Alcohol Beverage of Choice: Beer, Vodka Recreational Drug Use: No Smoking Status: Never a Smoker Recent Foreign Travel: No Contact w/Someone Who Travel: No Recent Infectious Disease Expo: No Recent Hopitalizations: No Physical Abuse: No Sexual Abuse: No Mistreated: No Fear: No Immunizations Up To Date Tetanus Booster (TDap): Less than 5yrs PED Vaccines UTD: Yes Seasonal Allergies Seasonal Allergies: Yes Past Medical History Surgeries: No Respiratory: No Currently Using CPAP: No Currently Using BIPAP: No Cardiac: No Neurological: No Reproductive Disorders: Yes Female Reproductive Disorders: Menstrual Problems Sexually Transmitted Disease: No HIV/AIDS: No Genitourinary: Yes Bladder Infection Gastrointestinal: Yes Gastroesophageal Reflux Musculoskeletal: No Endocrine: No HEENT: No Cancer: No Psychosocial: Yes Depression Nursing Suicide Risk Score: 0 Integumentary: No Blood Disorders: No Adverse Reaction/Blood Tranf: No Family Medical History Drug abuse 19 MOTHER (suicide attempts, from suicide attempt) Psychosocial problem G8 BROTHER ( from hit by car) Seizure disorder 21 FATHER No Pertinent Family Hx Physical Exam Vital Signs Vital Signs - First Documented 12/27/17 23:30 Temp 97.2 Pulse 84 Resp 18 B/P (MAP) 112/70 (84) Pulse Ox 99 O2 Delivery Room Air General Appearance: WD/WN, no apparent distress, other (DOES NOT APPEAR ILL) Eyes: bilateral eye normal inspection, bilateral eye PERRL, bilateral eye EOMI Ears: bilateral ear auricle normal, bilateral ear canal normal, bilateral ear TM normal Nose: No sinus tenderness; other (MILD NASAL CONGESTION AND CLEAR POST NASAL DRAINAGE) Mouth/Throat: normal mouth inspection, pharynx normal (NO ERYTHEMA TO PHARYNX) ; No excessive drooling, No pharynx swelling, No tongue swollen, No tonsillar exudate, No tonsillar swelling, No trismus, No uvula swelling, No voice changes Neck: non-tender, full range of motion, supple, normal inspection; No lymphadenopathy (R), No lymphadenopathy (L) Cardiovascular: regular rate, rhythm, no murmur Respiratory: normal breath sounds, no respiratory distress, no accessory muscle use Gastrointestinal: soft Neurologic/Psychiatric: interior wirer II-XII nml as tested, no motor/sensory deficits, alert, normal mood/affect, oriented x 3 Skin: normal color, warm/dry Progress/Results/Core Measures Results/Orders Lab Results Laboratory Tests Test 12/27/17 23:32 Range/Units Group A Streptococcus Screen NEGATIVE NEGATIVE My Orders Orders - JOSE COHEN DO Rapid Strep A Screen (12/27/17 23:33) Rx-Amoxicillin Capsule (Rx-Polymox Capsu (12/28/17 00:14) Rx-Amoxicillin/Clav Tab (Rx-Augmentin Ta (12/28/17 00:23) Rx-Amoxicillin Capsule (Rx-Polymox Capsu (12/28/17 00:24) Vital Signs/I&O 12/27/17 12/28/17 23:30 00:29 Temp 97.2 Pulse 84 0 Resp 18 0 B/P (MAP) 112/70 (84) 0/0 Pulse Ox 99 0 O2 Delivery Room Air Blood Pressure Mean: 84 Departure Impression Primary Impression: Post-nasal drainage Disposition: 01 HOME, SELF-CARE Condition: Stable Departure-Patient Inst. Referrals: MATHEUS JUAREZ MD (PCP/Family) Primary Care Physician Patient Instructions: Cough, Runny Nose, and the Common Cold (DC) Add. Discharge Instructions: TYLENOL NEEDED FOR PAIN FOLLOW UP WITH YOUR DR IN 3-4 DAYS IF NO BETTER All discharge instructions reviewed with patient and/or family. Voiced understanding. Scripts Fluticasone Propionate (Flonase Allergy Relief) 9.9 Ml Valentines.susp 2 SPRAYS NS BID, #1 SPRAY Prov: JOSE COHEN DO 12/28/17 Amoxicillin (Amoxicillin) 875 Mg Tablet 875 MG PO BID for INFECTION, #20 TAB Prov: JOSE COHEN DO 12/28/17 JOSE COHEN DO Dec 28, 2017 00:12
[2017-12-28] MEDS ORDERED: AMOX875T2 PO (00:14)
[2017-12-28] MEDS ORDERED: RX-AMOXICILLIN 500 MG CAP #3 PPK PO STA (00:14)
[2017-12-28] MEDS ORDERED: FLUT9.9S NS (00:14)
[2017-12-28] MEDS ORDERED: RX-AMOX/CLAV. (AUGMENTIN) 500MG TAB PPK#2 PO ONE (00:23)
[2017-12-28] MEDS ORDERED: RX-AMOXICILLIN 500 MG CAP #3 PPK PO ONE (00:24)
[2017-12-28 00:29] VITALS: BP 0/0
== END 2017-12-28 00:29 | disposition home or self-care (01) ==
LOC: EDUNIT# 23:22 → ER 23:25
DX: R09.82 Postnasal drip (principal); K21.9 Gastro-esophageal reflux disease without esophagitis; F32.9 Major depressive disorder, single episode, unspecified; Z79.51 Long term (current) use of inhaled steroids; Z72.89 Other problems related to lifestyle
CPT/HCPCS: 87430; 99283

== ENCOUNTER 2018-03-24 13:18 | Emergency (ER) | payer SELFPAY ==
[~2018-03-24] VITALS: Ht 162.6 cm; Wt 56.7 kg
[~2018-03-24 13:18] MED LIST changes: +AMOX875T2 PO; +FLUT9.9S NS
[2018-03-24 14:05] LABS: BILIRUBIN,URINE NEGATIVE (NEGATIVE); CLARITY,URINE CLEAR; COLOR,URINE YELLOW; GLUCOSE, URINE (UA) NEGATIVE (NEGATIVE); KETONES,URINE NEGATIVE (NEGATIVE); LEUKOCYTE ESTERASE ,URINE 2+ (NEGATIVE); NITRITE,URINE NEGATIVE (NEGATIVE); PH,URINE 6 (5-9); PROTEIN,URINE NEGATIVE (NEGATIVE); UROBILINOGEN,URINE NORMAL (NORMAL)
[2018-03-24] MEDS ORDERED: MEDR150V IM (14:07)
[2018-03-24] MEDS ORDERED: SUCR1TAB36 PO (14:07)
[2018-03-24 14:10] LABS: BASOPHILS % (AUTO) 0 % (0-10); EOSINOPHILS # (AUTO) 0.1 10^3/uL (0.0-0.3); EOSINOPHILS % (AUTO) 2 % (0-10); HEMATOCRIT 43 % (35-52); LYMPHOCYTES # (AUTO) 1.3 X 10^3 (1.0-4.0); LYMPHOCYTES % (AUTO) 16 % (12-44); MEAN CORPUSCULAR HEMOGLOBIN 30 PG (25-34); MEAN CORPUSCULAR HGB CONC 35 G/DL (32-36); MEAN CORPUSCULAR VOLUME 85 FL (80-99); MEAN PLATELET VOLUME 9.9 FL (7.4-10.4); MONOCYTES # (AUTO) 0.7 X 10^3 (0.0-1.0); MONOCYTES % (AUTO) 8 % (0-12); NEUTROPHILS # (AUTO) 5.9 X 10^3 (1.8-7.8); NEUTROPHILS % (AUTO) 74 % (42-75); PLATELET COUNT 262 10^3/uL (130-400); RED BLOOD COUNT 5.01 10^6/uL (4.35-5.85)
--- NOTE | 2018-03-24 14:13 | ED Abdominal Pain ---
General Chief Complaint: Abdominal/GI Problems Stated Complaint: STOMACH PAIN Nursing Triage Note: PT HAS BEEN EXPERIENCING INCREASING ABDOMINAL AND PELVIC PAIN THAT BEGAN A FEW WEEKS AGO. STATES SHE EXPERINCES PAIN AFTER MEALS, AND PREFERS TO SLEEP CURLED IN A BALL WITH SOMETHING PRESSING THE ABDOMEN LIKE A PILLOW Sepsis Screen: No Definite Risk Source of Information: Patient Exam Limitations: No Limitations History of Present Illness Date Seen by Provider: Mar 24, 2018 Time Seen by Provider: 13:45 Initial Comments Patient is a 22-year-old female who presents to the emergency room with increasing generalized abdominal pain and epigastric burning for the past 3 weeks. She reports being seen at [facility] and was treated for acid reflux and was given Carafate. She reports taking them for a few days but then stopping because it did not help. She also reports that the burning is worse after meals. She also reports burning to her pelvic region with urination. Denies vaginal discharge or pain with intercourse. Timing/Duration: Other (3 weeks) Severity/Quality: Burning Location: Generalized Abdomen Radiation: No Radiation Modifying Factors: Worsens With Eating; Improves With Lying down (in a curled up ball position to sleem); Worsens With Urinating Associated Symptoms: Denies Symptoms Allergies and Home Medications Allergies Coded Allergies: No Known Drug Allergies (Unverified , 12/05/13) Home Medications Fluticasone Propionate 9.9 Ml [place].susp, 2 SPRAYS NS BID Prescribed by: JOSE COHEN on 12/28/17 0014 Ranitidine HCl 150 Mg Tablet, 150 MG PO TID, (Reported) Sulfamethoxazole/Trimethoprim 1 Each Tablet, 1 EACH PO BID Prescribed by: DOROTHY MURILLO on 03/24/18 1442 Patient Home Medication List Home Medication List Reviewed: Yes Review of Systems Review of Systems Constitutional: see HPI; No chills, No fever Gastrointestinal: See HPI, Abdominal Pain Genitourinary: See HPI, Burning All Other Systems Reviewed Negative Unless Noted: Yes Past Htonbkt-Ssqdou-Agubzm Hx Past Med/Social Hx: Reviewed Nursing Past Med/Soc Hx Patient Social History Alcohol Beverage of Choice: Beer, Vodka Recent Foreign Travel: No Contact w/Someone Who Travel: No Recent Infectious Disease Expo: No Recent Hopitalizations: No Immunizations Up To Date Tetanus Booster (TDap): Less than 5yrs PED Vaccines UTD: Yes Seasonal Allergies Seasonal Allergies: Yes Past Medical History Surgeries: No Respiratory: No Currently Using CPAP: No Currently Using BIPAP: No Cardiac: No Neurological: No : No (USING DEPO SHOT) Last Menstrual Period: Apr 22, 2017 Reproductive Disorders: Yes Female Reproductive Disorders: Menstrual Problems Sexually Transmitted Disease: No HIV/AIDS: No Genitourinary: Yes Bladder Infection Gastrointestinal: Yes Gastroesophageal Reflux Musculoskeletal: No Endocrine: No HEENT: No Cancer: No Psychosocial: Yes Anxiety, Depression Integumentary: No Blood Disorders: No Adverse Reaction/Blood Tranf: No Family Medical History Reviewed Nursing Family Hx Drug abuse 19 MOTHER (suicide attempts, from suicide attempt) Psychosocial problem G8 BROTHER ( from hit by car) Seizure disorder 19 FATHER No Pertinent Family Hx Physical Exam Vital Signs Vital Signs - First Documented 03/24/18 13:29 Temp 98.3 Pulse 105 Resp 18 B/P (MAP) 131/64 (86) Pulse Ox 98 O2 Delivery Room Air Capillary Refill : Less Than 3 Seconds Height/Weight/BMI Height: 5'4.00" Weight: 125lbs. 0.0oz. 56.705336yc; 30.4 BMI Method:Stated General Appearance: WD/WN, no apparent distress Progress/Results/Core Measures Results/Orders Lab Results Laboratory Tests Test 03/24/18 13:19 03/24/18 13:55 Range/Units Lab Scanned Report Referred Lab Report [id number] White Blood Count 8.0 4.3-11.0 10^3/uL Red Blood Count 5.01 4.35-5.85 10^6/uL Hemoglobin 15.0 11.5-16.0 G/DL Hematocrit 43 35-52 % Mean Corpuscular Volume 85 80-99 FL Mean Corpuscular Hemoglobin 30 25-34 PG Mean Corpuscular Hemoglobin Concent 35 32-36 G/DL Red Cell Distribution Width 14.0 10.0-14.5 % Platelet Count 262 130-400 10^3/uL Mean Platelet Volume 9.9 7.4-10.4 FL Neutrophils (%) (Auto) 74 42-75 % Lymphocytes (%) (Auto) 16 12-44 % Monocytes (%) (Auto) 8 0-12 % Eosinophils (%) (Auto) 2 0-10 % Basophils (%) (Auto) 0 0-10 % Neutrophils # (Auto) 5.9 1.8-7.8 X 10^3 Lymphocytes # (Auto) 1.3 1.0-4.0 X 10^3 Monocytes # (Auto) 0.7 0.0-1.0 X 10^3 Eosinophils # (Auto) 0.1 0.0-0.3 10^3/uL Basophils # (Auto) 0.0 0.0-0.1 10^3/uL Urine Color YELLOW Urine Clarity CLEAR Urine pH 6 5-9 Urine Specific [place] 1.025 H 1.016-1.022 Urine Protein NEGATIVE NEGATIVE Urine Glucose (UA) NEGATIVE NEGATIVE Urine Ketones NEGATIVE NEGATIVE Urine Nitrite NEGATIVE NEGATIVE Urine Bilirubin NEGATIVE NEGATIVE Urine Urobilinogen NORMAL NORMAL MG/DL Urine Leukocyte Esterase 2+ H NEGATIVE Urine RBC (Auto) NEGATIVE NEGATIVE Urine RBC NONE /HPF Urine WBC 10-25 H /HPF Urine Squamous Epithelial Cells 5-10 /HPF Urine Crystals NONE /LPF Urine Bacteria MODERATE H /HPF Urine Casts NONE /LPF Urine Mucus MODERATE H /LPF Urine Culture Indicated YES Sodium Level 138 135-145 MMOL/L Potassium Level 3.6 3.6-5.0 MMOL/L Chloride Level 109 H 98-107 MMOL/L Carbon Dioxide Level 20 L 21-32 MMOL/L Anion Gap 9 5-14 MMOL/L Blood Urea Nitrogen 17 7-18 MG/DL Creatinine 0.71 0.60-1.30 MG/DL Estimat Glomerular Filtration Rate > 60 BUN/Creatinine Ratio 24 Glucose Level 80 70-105 MG/DL Calcium Level 9.1 8.5-10.1 MG/DL Corrected Calcium 8.5-10.1 MG/DL Total Bilirubin 1.7 H 0.1-1.0 MG/DL Aspartate Amino Transf (AST/SGOT) 16 5-34 U/L Alanine Aminotransferase (ALT/SGPT) 18 0-55 U/L Alkaline Phosphatase 119 40-136 U/L Total Protein 7.3 6.4-8.2 GM/DL Albumin 4.6 H 3.2-4.5 GM/DL Amylase Level 62 25-125 U/L Lipase 38 8-78 U/L Serum Test, Qualitative NEGATIVE NEGATIVE Micro Results Microbiology 03/24/18 Urine Culture - Final, Complete NO GROWTH My Orders Orders - DOROTHY MURILLO Comprehensive Metabolic Panel (03/24/18 13:48) Lipase (03/24/18 13:48) Amylase (03/24/18 13:48) Ua Culture If Indicated (03/24/18 13:48) Saline Lock/Iv-Start (03/24/18 13:48) Cbc With Automated Diff (03/24/18 13:48) Hcg,Qualitative Serum (03/24/18 13:48) Urine Culture (03/24/18 13:55) Vital Signs/I&O 03/24/18 03/24/18 13:29 15:00 Temp 98.3 98.0 Pulse 105 103 Resp 18 20 B/P (MAP) 131/64 (86) 131/64 Pulse Ox 98 98 O2 Delivery Room Air Room Air Blood Pressure Mean: 86 Progress Progress Note : Time: 14:30 Progress Note I have seen and evaluated the patient. I have informed her of her normal laboratory findings and informed her of the risk and benefits of imaging studies given normal lab findings. I have instructed her to continue the Carafate as I believe she was not taking it correctly. She agrees with plan of no imaging, plan of care, plans for discharge, return precautions were given. Departure Impression Primary Impression: Urinary tract infection Additional Impression: GERD (gastroesophageal reflux disease) Disposition: HOME, SELF-CARE Condition: Stable/Unchanged Departure-Patient Inst. Decision time for Depature: 14:34 Referrals: MATHEUS JUAREZ MD (PCP/Family) Primary Care Physician Patient Instructions: Acid Reflux (Gastroesophageal Reflux Disease) in Adults, Urinary Tract Infection, Adult (DC) Add. Discharge Instructions: Take medication as directed. Resume the Carafate as previously prescribed. Follow up with [facility] with in week for a recheck. Call today for appointment time. Return back to the emergency room for any other concerns as needed. All discharge instructions reviewed with patient and/or family. Voiced understanding. Scripts Sulfamethoxazole/Trimethoprim (Bactrim Ds Tablet) 1 Each Tablet 1 EACH PO BID for 7 Days, #14 TAB Prov: DOROTHY MURILLO 03/24/18 DOROTHY MURILLO Mar 24, 2018 14:13
[2018-03-24 14:17] LABS: BACTERIA,URINE MODERATE /HPF
[2018-03-24 14:26] LABS: ALANINE AMINOTRANSFERASE 18 U/L (0-55); ALBUMIN 4.6 GM/DL (3.2-4.5); ALKALINE PHOSPHATASE 119 U/L (40-136); AMYLASE 62 U/L (25-125); BILIRUBIN,TOTAL 1.7 MG/DL (0.1-1.0); BUN/CREATININE RATIO 24; CALCIUM 9.1 MG/DL (8.5-10.1); CARBON DIOXIDE 20 MMOL/L (21-32); CHLORIDE 109 MMOL/L (98-107); CREATININE SERUM 0.71 MG/DL (0.60-1.30); GFR ESTIMATED > 60; GLUCOSE 80 MG/DL (70-105); LIPASE 38 U/L (8-78); POTASSIUM 3.6 MMOL/L (3.6-5.0); SODIUM 138 MMOL/L (135-145); TOTAL PROTEIN 7.3 GM/DL (6.4-8.2)
[2018-03-24] MEDS ORDERED: SULF1TAB35 PO (14:42)
[2018-03-24 15:00] VITALS: BP 131/64
== END 2018-03-24 15:00 | disposition home or self-care (01) ==
LOC: EDUNIT# 13:18 → ER 13:19
DX: N39.0 Urinary tract infection, site not specified (principal); K21.9 Gastro-esophageal reflux disease without esophagitis; R10.13 Epigastric pain; F41.9 Anxiety disorder, unspecified; F32.9 Major depressive disorder, single episode, unspecified; Z79.51 Long term (current) use of inhaled steroids; Z87.448 Personal history of other diseases of urinary system
CPT/HCPCS: 36415; 80053; 81000; 82150; 83690; 84703; 85025; 87088

== ENCOUNTER 2019-06-07 09:00 | Outpatient (CLI) | payer OTHER ==
[~2019-06-07] VITALS: Ht 162.6 cm; Wt 72.7 kg
[~2019-06-07 09:00] MED LIST changes: +MEDR150V IM; +SUCR1TAB36 PO; +SULF1TAB35 PO
[2019-06-07] MEDS ORDERED: VENL150C PO (09:14)
[2019-06-07] MEDS ORDERED: LINA145C PO (09:14)
[2019-06-07] MEDS ORDERED: PANT40TA3 PO (09:14)
[2019-06-07] MEDS ORDERED: METO10TA3 PO (09:14)
[2019-06-08] MEDS ORDERED: BREX1TAB PO (13:52)
[2019-06-08] MEDS ORDERED: SUCR1TAB36 PO (15:41)
== END 2019-06-07 09:48 | disposition home or self-care (01) ==
LOC: PREOP 09:00
PROVIDERS: ATTEND Surgery
DX: Z01.818 Encounter for other preprocedural examination (principal)

== ENCOUNTER 2019-06-08 13:27 | Day surgery (SDC) | payer MEDICAID, OTHER ==
[~2019-06-08] VITALS: Ht 162.6 cm; Wt 72.7 kg
[~2019-06-08 13:27] MED LIST changes: +LINA145C PO; +METO10TA3 PO; +PANT40TA3 PO; +VENL150C PO
[2019-06-08] MEDS ORDERED: LACTATED RINGERS 1,000 ML IV ONE (13:30)
[2019-06-08] MEDS ORDERED: LACTATED RINGERS 1,000 ML IV STA (13:33)
[2019-06-08] MEDS ORDERED: HURRICAINE EXT TUBE (BENZOCAINE) XX PRN (13:45)
[2019-06-08 13:49] VITALS: BP 116/74
[2019-06-08] MEDS ORDERED: BREX1TAB PO (13:52)
[2019-06-08] MEDS ORDERED: proPOfol 200 MG/20 ML (DIPRIVAN) VIAL IV ONE (13:55)
[2019-06-08] MEDS ORDERED: MIDAZOLAM 2 MG/2 ML (VERSED) VIAL ONE (13:56)
--- NOTE | 2019-06-08 15:21 | Progress Note-Pre Operative ---
Pre-Operative Progress Note H&P Reviewed The H&P was reviewed, patient examined and no changes noted. Date Seen by Provider: Jun 08, 2019 Time Seen by Provider: 15:20 Date H&P Reviewed: Jun 08, 2019 Time H&P Reviewed: 15:21 Pre-Operative Diagnosis: epigastric abd pain, gerd LINA LLAMAS DO Jun 08, 2019 15:21 POS
--- NOTE | 2019-06-08 15:27 | Progress Note-Post Operative ---
Post-Operative Progess Note Surgeon (s)/Job Analyst (s) Surgeon LINA LLAMAS DO Job Analyst: NA Pre-Operative Diagnosis epigastric abd pain, gerd Post-Operative Diagnosis Gastritis and Antral Erosion Procedure & Operative Findings Date of Procedure 06/08/19 Procedure Performed/Findings EGD with biopsies Anesthesia Type per BARBER TOOL SHARPENER Estimated Blood Loss Estimated blood loss (mL): None Specimens/Packing Specimens Removed Biopsy of the Antrum, Antrum erosion and GE junction LINA LLAMAS DO Jun 08, 2019 15:26 POS
[2019-06-08 15:30] VITALS: BP 101/66
[2019-06-08 15:35] VITALS: BP 93/53
[2019-06-08 15:40] VITALS: BP 98/53
[2019-06-08] MEDS ORDERED: SUCR1TAB36 PO (15:41)
--- NOTE | 2019-06-08 15:42 | Discharge Inst-Simple/Standard ---
Discharge Inst-Standard Discharge Medications New, Converted or Re-Newed RX: Transmitted to Pharmacy Patient Instructions/Follow Up Plan of Care/Instructions/FU: 2 weeks Brina and regular diet Activity as Tolerated: Yes Discharge Diet: No Restrictions LINA LLAMAS DO Jun 08, 2019 15:42 POS
[2019-06-08 16:05] VITALS: BP 110/72
[2019-06-08 16:16] VITALS: BP 110/72
--- NOTE | 2019-06-08 16:18 | Anesthesia-General Post-Op ---
MAC Patient Condition Mental Status/LOC: Same as Preop Cardiovascular: Satisfactory Nausea/Vomiting: Absent Respiratory: Satisfactory Pain: Controlled Complications: Absent Post Op Complications Complications None Follow Up Care/Instructions Patient Instructions None needed. Anesthesiology Discharge Order Discharge Order Patient is doing well, no complaints, stable vital signs, no apparent adverse anesthesia problems. No complications reported per nursing. JUVENCIO OZUNA CRNA Jun 08, 2019 16:18 POS
--- NOTE | 2019-06-09 00:47 | OPERATIVE REPORT ---
DATE OF SERVICE: 06/08/2019 PREOPERATIVE DIAGNOSIS: Epigastric abdominal pain, gastroesophageal reflux disease. POSTOPERATIVE DIAGNOSES: Antral erosions and slight gastritis. PROCEDURE: EGD with biopsies. SURGEON: Lina Gonsalves DO ANESTHESIA: Per WATER FILTER CLEANER. ESTIMATED BLOOD LOSS: None. COMPLICATIONS: None. SPECIMENS: Biopsy of the antrum, antral erosion and GE junction. INDICATIONS: The patient is a 23-year-old female with epigastric abdominal pain and GERD. She understands risks and benefits of procedure and wished to proceed with the procedure. Consent was signed in the chart. DESCRIPTION OF PROCEDURE: The patient was taken to the endoscopy suite, placed in left lateral recumbent position. Timeout was performed. Scope was inserted in mouth, down the esophagus, stomach and into the duodenum without difficulty. There were no polyps, mass or ulcerations within the duodenum. Scope was then slowly retracted back into the stomach where it was further insufflated. Slight gastritis appearance. Some erythematous changes and some small gastric erosions present. Biopsy of the antrum and also the erosions were obtained. Scope was retroflexed noting no other pathology. Scope was returned to its normal position, slowly withdrawn to the distal esophagus. No polyps, mass or ulcerations. Biopsy of GE junction was obtained. Scope was then slowly retracted back until completely removed. The patient tolerated procedure well without any complications. She was taken to recovery room in stable condition. RECOMMENDATIONS: The patient will follow up in the office in 2 weeks and will go over biopsy results and possibly making changes at that time. Job ID: [id number] DocumentID: [id number] Dictated Date: 06/08/2019 15:32:44 Meter/Relay Technician Date: 06/09/2019 00:46:52 Dictated By: LINA GONSALVES DO
== END 2019-06-08 16:15 | disposition home or self-care (01) ==
LOC: ENDO 13:27
PROVIDERS: ATTEND Surgery
DX: K29.60 Other gastritis without bleeding (principal); K21.9 Gastro-esophageal reflux disease without esophagitis; K31.89 Other diseases of stomach and duodenum; F41.9 Anxiety disorder, unspecified; F32.9 Major depressive disorder, single episode, unspecified; Z79.899 Other long term (current) drug therapy; Z82.49 Family history of ischemic heart disease and other diseases of the circulatory system
CPT/HCPCS: 88305

== ENCOUNTER → 2019-06-16 | Outpatient (CLI) | payer OTHER ==
[~2019-06-16] MED LIST changes: +BREX1TAB PO
--- NOTE | 2019-06-16 08:49 | Diagnostic Imaging Report ---
PROCEDURE: US Gallbladder. TECHNIQUE: Multiple real-time grayscale images were obtained over the right upper quadrant in various projections. INDICATION: Right upper quadrant pain. FINDINGS: The previous abdominal ultrasound exam of 04/03/2015 failed to show any sign of an acute abnormality. On this study, there is still no evidence for cholelithiasis or acute cholecystitis. The common bile duct is not dilated. The liver, pancreas, right kidney, aorta, and inferior vena cava show no evidence for an acute abnormality. There is no mass or free fluid collection evident. IMPRESSION: 1. There is still no evidence for an acute abnormality of the right upper quadrant. 2. If clinical concern regarding an underlying abnormality of the gallbladder persists, then nuclear medicine hepatobiliary scan would be recommended for further study. Dictated by: Dictated on workstation # [id number]
== END ==
LOC: RAD 08:07
PROVIDERS: ATTEND Surgery
DX: R10.9 Unspecified abdominal pain (principal)
CPT/HCPCS: 76705

== ENCOUNTER → 2019-06-25 | Outpatient (CLI) | payer OTHER ==
[~2019-06-25] MED LIST changes: +ACHD5005 PO; +CATHETER FLUSH 10 ML SYR IV PRN; +DOCU-143 PO
--- NOTE | 2019-06-25 12:33 | Diagnostic Imaging Report ---
INDICATION: Abdominal pain. TECHNIQUE: Patient was administered 5.5 mCi technetium 99m Choletec intravenously and imaging over the abdomen was performed. After 60 minutes, patient ingested 1 can of Ensure and a gallbladder ejection fraction was calculated. FINDINGS: There is homogeneous uptake of activity by the liver. Prompt excretion of activity into the gallbladder and common duct is seen. There is normal passage of activity into the small bowel. Gallbladder ejection fraction is 90%. IMPRESSION: 1. Patent cystic duct and common bile duct. 2. Gallbladder ejection fraction of 90%. Dictated by: Dictated on workstation # [id number]
== END ==
LOC: CARD 09:19
PROVIDERS: ATTEND Surgery
DX: R10.9 Unspecified abdominal pain (principal)
CPT/HCPCS: 78227

== ENCOUNTER 2019-08-02 05:30 | Outpatient (CLI) | payer OTHER ==
[~2019-08-02] VITALS: Ht 162.6 cm; Wt 72.7 kg
[~2019-08-02 05:30] MED LIST changes: -ACHD5005 PO; -CATHETER FLUSH 10 ML SYR IV PRN; -DOCU-143 PO
== END 2019-08-02 09:50 | disposition home or self-care (01) ==
LOC: PREOP 05:30
PROVIDERS: ATTEND Surgery
DX: Z01.818 Encounter for other preprocedural examination (principal)

== ENCOUNTER → 2019-11-03 | Outpatient (CLI) | payer OTHER ==
[~2019-11-03] MED LIST changes: +ACHD5005 PO; +DOCU-143 PO
[2019-11-03 14:29] LABS: BASOPHILS % (AUTO) 0 % (0-10); EOSINOPHILS # (AUTO) 0.2 10^3/uL (0.0-0.3); EOSINOPHILS % (AUTO) 2 % (0-10); HEMATOCRIT 40 % (35-52); LYMPHOCYTES # (AUTO) 2.7 X 10^3 (1.0-4.0); LYMPHOCYTES % (AUTO) 27 % (12-44); MEAN CORPUSCULAR HEMOGLOBIN 31 PG (25-34); MEAN CORPUSCULAR HGB CONC 35 G/DL (32-36); MEAN CORPUSCULAR VOLUME 88 FL (80-99); MEAN PLATELET VOLUME 9.7 FL (7.4-10.4); MONOCYTES # (AUTO) 0.8 X 10^3 (0.0-1.0); MONOCYTES % (AUTO) 8 % (0-12); NEUTROPHILS # (AUTO) 6.3 X 10^3 (1.8-7.8); NEUTROPHILS % (AUTO) 63 % (42-75); PLATELET COUNT 328 10^3/uL (130-400); RED CELL DISTRIBUTION WIDTH 12.6 % (10.0-14.5)
[2019-11-03 14:41] LABS: ALBUMIN 4.3 GM/DL (3.2-4.5); CHLORIDE 108 MMOL/L (98-107); POTASSIUM 3.8 MMOL/L (3.6-5.0); SODIUM 139 MMOL/L (135-145)
[2019-11-03 14:42] LABS: CALCIUM 9.4 MG/DL (8.5-10.1)
[2019-11-03 14:43] LABS: GLUCOSE 103 MG/DL (70-105); TOTAL PROTEIN 7.3 GM/DL (6.4-8.2)
[2019-11-03 14:44] LABS: CARBON DIOXIDE 21 MMOL/L (21-32)
[2019-11-03 14:45] LABS: BILIRUBIN,TOTAL 0.8 MG/DL (0.1-1.0)
[2019-11-03 14:47] LABS: ALKALINE PHOSPHATASE 118 U/L (40-136); GFR ESTIMATED > 60
[2019-11-03 14:48] LABS: BUN/CREATININE RATIO 14
[2019-11-03 14:50] LABS: ALANINE AMINOTRANSFERASE 29 U/L (0-55)
== END ==
LOC: LAB 14:16
PROVIDERS: ATTEND Surgery
DX: R11.2 Nausea with vomiting, unspecified (principal); R10.9 Unspecified abdominal pain
CPT/HCPCS: 36415; 80053; 85025; 86677

== ENCOUNTER → 2019-11-19 | Outpatient (CLI) | payer OTHER ==
[~2019-11-19] MED LIST changes: +BARIUM for suspension 96% w/w (Vanilla Silq Medium Density) PO ONE; +BARIUM for suspension 98% w/w (Vanilla Silq High Density) PO ONE; +PROM25TA14 PO
--- NOTE | 2019-11-19 12:04 | Diagnostic Imaging Report ---
INDICATION: Abdominal pain, nausea and vomiting. Patient ingested effervescent crystals as well as thin and thick barium and imaging of esophagus was performed. Total of 1 minute and 12 seconds of fluoroscopic time was utilized. The esophagus has a smooth contour. No mass or strictures identified. No hiatal hernia or gastroesophageal reflux was demonstrated. Barium promptly empties into the stomach. Stomach empties into small bowel. Visualized duodenal bulb and stomach configuration are unremarkable. IMPRESSION: Unremarkable barium esophagram. Dictated by: Dictated on workstation # [id number]
== END ==
LOC: RAD 11:04
PROVIDERS: ATTEND Surgery
DX: R10.9 Unspecified abdominal pain (principal); R11.2 Nausea with vomiting, unspecified
CPT/HCPCS: 74220

== ENCOUNTER 2019-11-22 10:20 | Emergency (ER) | payer OTHER ==
[~2019-11-22] VITALS: Ht 162.5 cm; Wt 85.2 kg
[~2019-11-22 10:20] MED LIST changes: -BARIUM for suspension 96% w/w (Vanilla Silq Medium Density) PO ONE; -BARIUM for suspension 98% w/w (Vanilla Silq High Density) PO ONE; -PROM25TA14 PO
[2019-11-22 10:45] VITALS: BP 125/66
[2019-11-22 11:06] LABS: BILIRUBIN,URINE NEGATIVE (NEGATIVE); CLARITY,URINE SL CLOUDY; COLOR,URINE YELLOW; GLUCOSE, URINE (UA) NEGATIVE (NEGATIVE); KETONES,URINE NEGATIVE (NEGATIVE); LEUKOCYTE ESTERASE ,URINE 1+ (NEGATIVE); NITRITE,URINE NEGATIVE (NEGATIVE); PH,URINE 7.5 (5-9); PROTEIN,URINE NEGATIVE (NEGATIVE)
[2019-11-22] MEDS ORDERED: LACTATED RINGERS 1,000 ML IV ONE (11:06)
--- NOTE | 2019-11-22 11:14 | ED GI ---
General Chief Complaint: Abdominal/GI Problems Stated Complaint: NAUSEA/VOMITING Nursing Triage Note: Pt reports having gallbladder removed August [address] Gonsalves. Pt has been vomiting consistently since then. Pt has been following up with Dr Gonsalves who has been ordering procedures for her. Most recent was swallow eval on friday, results havent been called to her yet. Pain is typically midline and constant but today it is also on her left side. Pain 10/10 Sepsis Screen: No Definite Risk Source of Information: Patient Exam Limitations: No Limitations History of Present Illness Date Seen by Provider: November 22, 2019 Time Seen by Provider: 10:45 Initial Comments Patient resents to ER by private conveyance from home with chief complaint that since July she's been experiencing nausea vomiting and occasional dumping syndrome. She had her appendix out in May 2019 in her gallbladder out in July. Since then Dr. Gonsalves has been working her up and has done a EGD which found small erosions/ulcers. He also ordered a swallow study test which she did yesterday but does not have the results to it yet. She says she's changed her diet up and tried ondansetron. She is a ondansetron never works fully to take her nausea away. She wakes up with nauseated before food. Last time she took ondansetron was 2 days ago. She has not tried any other medicines. She is on the Carafate PPI combo. This morning she woke up with nausea and then tried to eat a breakfast burrito which only made it worse and she had some loose stools. She has had allergy testing for foods which were negative. She has been told she may have irritable bowel syndrome. She comes today because she feels she cannot keep anything down and feels dehydrated. She does not feel like the ondansetron is sufficient. Allergies and Home Medications Allergies Coded Allergies: No Known Drug Allergies (Unverified , 11/22/19) Home Medications Brexpiprazole 1 Mg Tablet, 1 MG PO DAILY, (Reported) Docusate Sodium 100 Mg Capsule, 100 MG PO BID Prescribed by: LINA GONSALVES on 08/05/19 0990 Hydrocodone Bit/Acetaminophen 1 Tab Tab, 1-2 TAB PO Q6H PRN for PAIN-MODERATE Prescribed by: LINA GONSALVES on 08/05/19 0906 Linaclotide 145 Mcg Capsule, 145 MCG PO DAILY, (Reported) Pantoprazole Sodium 40 Mg Tablet.dr, 40 MG PO DAILY, (Reported) Venlafaxine HCl 150 Mg Cap.er.24h, 150 MG PO DAILY, (Reported) Patient Home Medication List Home Medication List Reviewed: Yes Review of Systems Review of Systems Constitutional: No chills, No diaphoresis EENTM: No Blurred Vision, No Double Vision Respiratory: Denies Cough, Denies Shortness of Air Cardiovascular: Denies Chest Pain, Denies Lightheadedness Gastrointestinal: Denies Abdomen Distended, Denies Abdominal Pain, Denies Constipated; Diarrhea, Nausea, Poor Appetite, Poor Fluid Intake, Vomiting Genitourinary: Denies Burning, Denies Discharge Musculoskeletal: No back pain, No joint pain Skin: No pruritus, No rash Psychiatric/Neurological: Denies Headache, Denies Numbness All Other Systems Reviewed Negative Unless Noted: Yes Past Xaiujpw-Wxxtot-Dxdzdi Hx Patient Social History Alcohol Use: Denies Use Number of Drinks Today: FF Alcohol Beverage of Choice: Vodka Recreational Drug Use: No Recent Foreign Travel: No Contact w/Someone Who Travel: No Recent Infectious Disease Expo: No Recent Hopitalizations: No Physical Abuse: No Sexual Abuse: No Immunizations Up To Date Tetanus Booster (TDap): Less than 5yrs PED Vaccines UTD: Yes Date of Influenza Vaccine: May 21, 2019 Seasonal Allergies Seasonal Allergies: Yes Past Medical History Surgeries: Yes Appendectomy, Gallbladder Respiratory: No Currently Using CPAP: No Currently Using BIPAP: No Cardiac: No Neurological: No Reproductive Disorders: Yes Female Reproductive Disorders: Menstrual Problems Sexually Transmitted Disease: No HIV/AIDS: No Genitourinary: No Bladder Infection Gastrointestinal: Yes (epigastric pain) Gastroesophageal Reflux, Gall Bladder Disease Musculoskeletal: No Endocrine: No HEENT: No Cancer: No Psychosocial: Yes Anxiety, Depression Integumentary: No Blood Disorders: No Adverse Reaction/Blood Tranf: No Family Medical History Drug abuse 19 MOTHER (suicide attempts, from suicide attempt) Psychosocial problem G8 BROTHER ( from hit by car) Seizure disorder 19 FATHER No Pertinent Family Hx Physical Exam Vital Signs Vital Signs - First Documented 11/22/19 10:45 Temp 36.8 Pulse 89 Resp 12 B/P (MAP) 125/66 (85) Pulse Ox 97 Capillary Refill : Less Than 3 Seconds Height/Weight/BMI Height: 5'4.00" Weight: 125lbs. 0.0oz. 56.875207mj; 32.00 BMI Method:Stated General Appearance: WD/WN, mild distress HEENT: PERRL/EOMI; No pharynx normal (oropharynx is dry) Neck: full range of motion, normal inspection Respiratory: no respiratory distress, no accessory muscle use Cardiovascular: normal peripheral pulses, regular rate, rhythm Peripheral Pulses: 2+ Dorsalis Pedis (R), 2+ Left Dors-Pedis (L) Gastrointestinal: normal bowel sounds, non tender, soft, no organomegaly Extremities: normal range of motion, normal inspection, normal capillary refill Neurologic/Psychiatric: alert, normal mood/affect, oriented x 3 Skin: normal color, warm/dry Progress/Results/Core Measures Results/Orders Lab Results Laboratory Tests Test 11/22/19 10:57 11/22/19 11:01 Range/Units White Blood Count 11.6 H 4.3-11.0 10^3/uL Red Blood Count 4.51 4.35-5.85 10^6/uL Hemoglobin 13.5 11.5-16.0 G/DL Hematocrit 41 35-52 % Mean Corpuscular Volume 90 80-99 FL Mean Corpuscular Hemoglobin 30 25-34 PG Mean Corpuscular Hemoglobin Concent 33 32-36 G/DL Red Cell Distribution Width 13.2 10.0-14.5 % Platelet Count 273 130-400 10^3/uL Mean Platelet Volume 10.1 7.4-10.4 FL Neutrophils (%) (Auto) 68 42-75 % Lymphocytes (%) (Auto) 23 12-44 % Monocytes (%) (Auto) 7 0-12 % Eosinophils (%) (Auto) 2 0-10 % Basophils (%) (Auto) 0 0-10 % Neutrophils # (Auto) 7.9 H 1.8-7.8 X 10^3 Lymphocytes # (Auto) 2.7 1.0-4.0 X 10^3 Monocytes # (Auto) 0.8 0.0-1.0 X 10^3 Eosinophils # (Auto) 0.3 0.0-0.3 10^3/uL Basophils # (Auto) 0.0 0.0-0.1 10^3/uL Sodium Level 139 135-145 MMOL/L Potassium Level 3.8 3.6-5.0 MMOL/L Chloride Level 104 98-107 MMOL/L Carbon Dioxide Level 24 21-32 MMOL/L Anion Gap 11 5-14 MMOL/L Blood Urea Nitrogen 8 7-18 MG/DL Creatinine 0.73 0.60-1.30 MG/DL Estimat Glomerular Filtration Rate > 60 BUN/Creatinine Ratio 11 Glucose Level 88 70-105 MG/DL Calcium Level 9.1 8.5-10.1 MG/DL Corrected Calcium 8.9 8.5-10.1 MG/DL Total Bilirubin 0.7 0.1-1.0 MG/DL Aspartate Amino Transf (AST/SGOT) 25 5-34 U/L Alanine Aminotransferase (ALT/SGPT) 30 0-55 U/L Alkaline Phosphatase 103 40-136 U/L C-Reactive Protein High Sensitivity 0.42 0.00-0.50 MG/DL Total Protein 6.8 6.4-8.2 GM/DL Albumin 4.2 3.2-4.5 GM/DL Lipase 21 8-78 U/L Urine Color YELLOW Urine Clarity SL CLOUDY Urine pH 7.5 5-9 Urine Specific Clarence 1.020 1.016-1.022 Urine Protein NEGATIVE NEGATIVE Urine Glucose (UA) NEGATIVE NEGATIVE Urine Ketones NEGATIVE NEGATIVE Urine Nitrite NEGATIVE NEGATIVE Urine Bilirubin NEGATIVE NEGATIVE Urine Urobilinogen 0.2 < = 1.0 MG/DL Urine Leukocyte Esterase 1+ H NEGATIVE Urine RBC (Auto) NEGATIVE NEGATIVE Urine RBC NONE /HPF Urine WBC 5-10 H /HPF Urine Squamous Epithelial Cells TNTC H /HPF Urine Crystals NONE /LPF Urine Bacteria LARGE H /HPF Urine Casts NONE /LPF Urine Mucus NEGATIVE /LPF Urine Culture Indicated YES My Orders Orders - FERNANDA ANGEL Ua Culture If Indicated (11/22/19 10:43) Urine Bedside (11/22/19 10:43) Cbc With Automated Diff (11/22/19 11:06) Comprehensive Metabolic Panel (11/22/19 11:06) Hs C Reactive Protein (11/22/19 11:06) Lipase (11/22/19 11:06) Ed Iv/Invasive Line Start (11/22/19 11:06) Lactated Ringers (Lr 1000 Ml Iv Solution (11/22/19 11:06) Ondansetron Injection (Zofran Injectio (11/22/19 11:15) Urine Culture (11/22/19 11:01) Promethazine Injection (Phenergan Injec (11/22/19 11:45) Medications Given in ED Current Medications Medications Dose Ordered Sig/Janet Route Start Time Stop Time Status Last Admin Dose Admin Lactated Ringer's 1,000 ml @ 0 mls/hr Q0M ONCE IV 11/22/19 11:06 11/22/19 11:08 DC 11/22/19 11:31 999 MLS/HR Ondansetron HCl 4 mg ONCE ONCE IVP 11/22/19 11:15 11/22/19 11:16 DC 11/22/19 11:31 4 MG Promethazine HCl 25 mg ONCE ONCE IVP 11/22/19 11:45 11/22/19 11:46 DC 11/22/19 11:49 25 MG Vital Signs/I&O 11/22/19 10:45 Temp 36.8 Pulse 89 Resp 12 B/P (MAP) 125/66 (85) Pulse Ox 97 Blood Pressure Mean: 85 Progress Progress Note #1: Time: 11:14 Progress Note We've explained to her that we will try and help move her very thorough outpatient workup along and obtain some basic labs and urinalysis to rule out infection, anemia or kidney dysfunction etc. We'll get a lipase. We'll also give her some fluids and trial her first IV ondansetron. If this does not control her nausea then we will consider Phenergan or Reglan. We also discussed that breakfast. It was probably not a good choice especially when she started nauseated and with having her gallbladder out. We discussed appropriate conservative diet postcholecystectomy. Progress Note #2: Time: 12:13 Progress Note Patient's got about half of her fluids and and therefore after her Phenergan. She says she feels a little heavy and drowsy and is got a call for a ride home. Her nausea is under control. We'll provide her with some Phenergan but encouraged her to use the ondansetron first. We discussed the conversation between myself and the surgeon. She has been to call for an appointment today with Dr. Gonsalves to discuss which is appropriate to do EGD, GI consultation etc. Consults : Consulting Physician: LINA GONSALVES DO Consults Notes Discussed the case with general surgery, Dr. Gonsalves who is working the patient up outpatient. He is familiar with the case and we reviewed the barium swallow which was normal. His next step was to set her up for EGD or consult to GI for ideas. At this time he would just as the patient to follow-up in the clinic so they can determine the next course of management. Departure Impression Primary Impression: Nausea and vomiting Qualified Codes: R11.2 - Nausea with vomiting, unspecified Disposition: HOME, SELF-CARE Condition: Stable (ERASED) Departure-Patient Inst. Decision time for Depature: 12:14 [place]errals: [facility] [place] Primary Care Physician ADRIÁN CARNES APRN (Family) Primary Care Physician LINA GONSALVES DO Patient Instructions: Nausea and Vomiting, Adult (DC) Add. Discharge Instructions: Avoid greasy foods especially dairy. Avoid spicy foods. Dark green leafy vegetables such as spinach, Kale and high fiber foods are good options. Avoid iceberg lettuce. Make sure you're drinking plenty of fluids. If you're nauseated stick to a liquid diet. Continue to use Zofran/ondansetron as prescribed. Phenergan 1 tablet every 6 hours as needed for nausea and vomiting not controlled by ondansetron. Phenergan will cause drowsiness and you should not drive, drink alcohol or operate heavy machinery. Call Dr. Gonsalves's clinic and request follow-up appointment to discuss the next appropriate step. All discharge instructions reviewed with patient and/or family. Voiced und erstanding. Scripts Promethazine HCl (Promethazine Tablet) 25 Mg Tablet 25 MG PO Q6H PRN for NAUSEA/VOMITING, #12 TAB 0 Refills Prov: FERNANDA ANGEL 11/22/19 FERNANDA ANGEL November 22, 2019 11:14
[2019-11-22] MEDS ORDERED: ONDANSETRON 4 MG/2 ML (SDV) Z0FRAN IVP ONE (11:15)
[2019-11-22 11:16] LABS: BASOPHILS % (AUTO) 0 % (0-10); EOSINOPHILS # (AUTO) 0.3 10^3/uL (0.0-0.3); EOSINOPHILS % (AUTO) 2 % (0-10); HEMATOCRIT 41 % (35-52); HEMOGLOBIN 13.5 G/DL (11.5-16.0); LYMPHOCYTES # (AUTO) 2.7 X 10^3 (1.0-4.0); LYMPHOCYTES % (AUTO) 23 % (12-44); MEAN CORPUSCULAR HEMOGLOBIN 30 PG (25-34); MEAN CORPUSCULAR HGB CONC 33 G/DL (32-36); MEAN CORPUSCULAR VOLUME 90 FL (80-99); MEAN PLATELET VOLUME 10.1 FL (7.4-10.4); MONOCYTES # (AUTO) 0.8 X 10^3 (0.0-1.0); MONOCYTES % (AUTO) 7 % (0-12); NEUTROPHILS # (AUTO) 7.9 X 10^3 (1.8-7.8); NEUTROPHILS % (AUTO) 68 % (42-75); PLATELET COUNT 273 10^3/uL (130-400); RED CELL DISTRIBUTION WIDTH 13.2 % (10.0-14.5); WHITE BLOOD COUNT 11.6 10^3/uL (4.3-11.0)
[2019-11-22 11:21] LABS: BACTERIA,URINE LARGE /HPF; SQUAMOUS EPITHELIAL CELL,UR TNTC /HPF
[2019-11-22 11:29] LABS: ALANINE AMINOTRANSFERASE 30 U/L (0-55); ALBUMIN 4.2 GM/DL (3.2-4.5); ALKALINE PHOSPHATASE 103 U/L (40-136); BILIRUBIN,TOTAL 0.7 MG/DL (0.1-1.0); BUN/CREATININE RATIO 11; CALCIUM 9.1 MG/DL (8.5-10.1); CARBON DIOXIDE 24 MMOL/L (21-32); CHLORIDE 104 MMOL/L (98-107); CREATININE SERUM 0.73 MG/DL (0.60-1.30); GFR ESTIMATED > 60; GLUCOSE 88 MG/DL (70-105); LIPASE 21 U/L (8-78); POTASSIUM 3.8 MMOL/L (3.6-5.0); SODIUM 139 MMOL/L (135-145); TOTAL PROTEIN 6.8 GM/DL (6.4-8.2)
[2019-11-22] MEDS ORDERED: PROMETHAZINE INJ 25 MG/ML (PHENERGAN) AMP IVP ONE (11:45)
[2019-11-22] MEDS ORDERED: PROM25TA14 PO (12:16)
== END 2019-11-22 12:49 | disposition home or self-care (01) ==
LOC: EDUNIT# 10:20 → ER 10:21
DX: R11.2 Nausea with vomiting, unspecified (principal); K21.9 Gastro-esophageal reflux disease without esophagitis; F41.9 Anxiety disorder, unspecified; F32.9 Major depressive disorder, single episode, unspecified; Z98.890 Other specified postprocedural states; Z90.49 Acquired absence of other specified parts of digestive tract; Z79.899 Other long term (current) drug therapy
CPT/HCPCS: 36415; 80053; 81000; 83690; 84703; 85025; 86141; 87088

== ENCOUNTER 2020-07-02 02:18 | Emergency (ER) | payer SELFPAY ==
[~2020-07-02] VITALS: Ht 162.6 cm; Wt 84.1 kg
[~2020-07-02 02:18] MED LIST changes: -PANT40TA3 PO; +PANT40TA52 PO; +PROM25TA14 PO
[2020-07-02] MEDS ORDERED: NS IV 1000 ML 1,000 ML IV STA (02:36)
--- NOTE | 2020-07-02 02:36 | ED General ---
General Chief Complaint: Substance Abuse Stated Complaint: ABD PAIN/ETOH Source of Information: Patient, EMS Exam Limitations: No Limitations History of Present Illness Date Seen by Provider: Jul 02, 2020 Time Seen by Provider: 02:32 Initial Comments Patient is a 24-year-old female who presents to the emergency department today with a chief complaint of upper abdominal pain. Patient states that she recently moved from [place]. She has been drinking a lot of energy drinks around her move and this evening decided to go out to a bar. Patient had multiple alcoholic beverages this evening and had onset of upper abdominal pain while at the bar. Reportedly the patient possibly had a syncopal episode in the bathroom at the bar. She does not remember all of the details of this episode. She does not think that she passed out completely. At the time of arrival to the emergency department the patient states her abdominal pain is resolved 100%. Patient denies any nausea. She denies any chest pain, shortness of breath, headache. No recent illnesses. Patient has no complaints whatsoever upon arrival. All other review of systems reviewed and negative except as stated above. Timing/Duration: 1/2 Hour Severity: Mild Associated Systoms: Denies Symptoms Allergies and Home Medications Allergies Coded Allergies: No Known Drug Allergies (Unverified , 11/22/19) Home Medications Brexpiprazole 1 Mg Tablet, 1 MG PO DAILY, (Reported) Docusate Sodium 100 Mg Capsule, 100 MG PO BID Prescribed by: LINA LLAMAS on 08/05/19 0947 Hydrocodone Bit/Acetaminophen 1 Tab Tab, 1-2 TAB PO Q6H PRN for PAIN-MODERATE Prescribed by: LINA LLAMAS on 08/05/19 0947 Linaclotide 145 Mcg Capsule, 145 MCG PO DAILY, (Reported) Pantoprazole Sodium 40 Mg Tablet.dr, 40 MG PO DAILY, (Reported) Promethazine HCl 25 Mg Tablet, 25 MG PO Q6H PRN for NAUSEA/VOMITING Prescribed by: FERNANDA ANGEL on 11/22/19 1216 Venlafaxine HCl 150 Mg Cap.er.24h, 150 MG PO DAILY, (Reported) Patient Home Medication List Home Medication List Reviewed: Yes Review of Systems Review of Systems Constitutional: see HPI EENTM: no symptoms reported Respiratory: no symptoms reported Cardiovascular: no symptoms reported Gastrointestinal: abdominal pain Genitourinary: no symptoms reported : No Musculoskeletal: no symptoms reported Skin: no symptoms reported Psychiatric/Neurological: No Symptoms Reported Past Fglozzj-Pgeztb-Usewvq Hx Patient Social History Alcohol Use: Occasionally Uses Number of Drinks Today: FF Alcohol Beverage of Choice: Vodka Recreational Drug Use: No Smoking Status: Never a Smoker Recent Hopitalizations: No Immunizations Up To Date Tetanus Booster (TDap): Less than 5yrs PED Vaccines UTD: Yes Date of Influenza Vaccine: May 21, 2019 Seasonal Allergies Seasonal Allergies: Yes Past Medical History Surgeries: Yes Appendectomy, Gallbladder Respiratory: No Currently Using CPAP: No Currently Using BIPAP: No Cardiac: No Neurological: No Reproductive Disorders: Yes Female Reproductive Disorders: Menstrual Problems Sexually Transmitted Disease: No HIV/AIDS: No Genitourinary: No Bladder Infection Gastrointestinal: Yes (epigastric pain) Gastroesophageal Reflux, Gall Bladder Disease Musculoskeletal: No Endocrine: No HEENT: No Cancer: No Psychosocial: Yes Anxiety, Depression Integumentary: No Blood Disorders: No Adverse Reaction/Blood Tranf: No Family Medical History Drug abuse 19 MOTHER (suicide attempts, from suicide attempt) Psychosocial problem G8 BROTHER ( from hit by car) Seizure disorder 19 FATHER No Pertinent Family Hx Physical Exam Vital Signs Vital Signs - First Documented 07/02/20 02:22 Temp 35.9 Pulse 102 Resp 18 B/P (MAP) 124/82 (96) Pulse Ox 98 O2 Delivery Room Air Capillary Refill : Height, Weight, BMI Height: 5'4.00" Weight: 125lbs. 0.0oz. 56.888447ls; 32.00 BMI Method:Stated General Appearance: No Apparent Distress, WD/WN Eyes: Bilateral Eye Normal Inspection, Bilateral Eye PERRL, Bilateral Eye EOMI HEENT: PERRL/EOMI Respiratory: Lungs Clear, Normal Breath Sounds, No Accessory Muscle Use, No Respiratory Distress Cardiovascular: Regular Rate, Rhythm, No Murmur Gastrointestinal: Normal Bowel Sounds, Non Tender, Soft Extremity: Normal Capillary Refill, Normal Inspection, Normal Range of Motion, Non Tender Neurologic/Psychiatric: Alert, Oriented x3, No Motor/Sensory Deficits, Normal Mood/Affect, room designer II-XII Norm as Tested Skin: Normal Color, Warm/Dry Progress/Results/Core Measures Suspected Sepsis SIRS Temperature: Pulse: Respiratory Rate: Blood Pressure / Mean: Results/Orders My Orders Orders - ARIANA SUAZO MD Ns Iv 1000 Ml (Sodium Chloride 0.9%) (07/02/20 02:36) Vital Signs/I&O 07/02/20 07/02/20 02:22 03:03 Temp 35.9 36.0 Pulse 102 86 Resp 18 18 B/P (MAP) 124/82 (96) 107/96 (96) Pulse Ox 98 100 O2 Delivery Room Air Room Air Capillary Refill : Progress Note : Time: 02:39 Progress Note 24-year-old female presents from a local bar after an episode of possible syncope with abdominal pain. Evaluation today includes a physical exam. The patient has had previous visits to the emergency department (per review of the medical record) for epigastric abdominal pain and work-up of ulcers. Patient has stable vital signs. Her complaint has spontaneously resolved. Patient is treated in the emergency department with a liter of IV fluids. She has no ongoing complaints of gastric distress. Patient will be discharged to home with conservative management. Continue her home medication regimen and return precautions. Departure Impression Primary Impression: Acute alcoholic intoxication Qualified Codes: F10.920 - Alcohol use, unspecified with intoxication, uncomplicated Additional Impression: Abdominal pain Qualified Codes: R10.13 - Epigastric pain Disposition: 01 HOME, SELF-CARE Condition: Stable Departure-Patient Inst. [facility]: [facility] [facility] [place] Primary Care Physician ADRIÁN CARNES APRN (Family) Primary Care Physician Patient Instructions: Abdominal Pain, Adult ED Add. Discharge Instructions: Drink plenty of fluids to stay well-hydrated. Continue your home medications. Return to the emergency department if you have any worsening abdominal pain especially associated with fevers, nausea, vomiting or any other emergent concerns. ARIANA SUAZO MD Jul 02, 2020 02:36
[2020-07-02 03:03] VITALS: BP 107/96
--- NOTE | 2020-07-02 03:05 | NUR ---
PERSON NAMING THEMSELVES SOHAM CALLED STATING SHE WAS A FRIEND OF THIS PT AND WANTED TO INFORM US THAT WE WERE "NOT TAKING THE PT SERIOUSLY AND TREATING HER FOR HER STATED COMPLAINTS." ASSURED HER THAT THE IS EVALUATING AND TREATING THE PT. SOHAM STATES, "WELL I KNOW MEDICAL PEOPLE, [employer], AND MORTGAGE CONSULTANT AND I'M TELLING YOU THAT YOU BETTER MAKE SURE YOU DOT ALL YOUR I'S AND CROSS ALL YOUR T'S AND MAKE SURE THAT YOU ARE DOING THE RIGHT TESTS OR I'LL.." AT THIS POINT THE CALLER WAS STOPPED AND TOLD THAT THIS DECISION SUPPORT ANALYST/RN WAS HANGING UP THE PHONE THREATS WOULD NOT BE TOLERATED. KATHLEEN RACHELLOAN APPROVER NOTIFIED.
== END 2020-07-02 03:03 | disposition home or self-care (01) ==
LOC: EDUNIT# 02:18 → ER 02:20
DX: F10.129 Alcohol abuse with intoxication, unspecified (principal); R10.13 Epigastric pain; K21.9 Gastro-esophageal reflux disease without esophagitis; F41.9 Anxiety disorder, unspecified; F32.9 Major depressive disorder, single episode, unspecified

== ENCOUNTER 2021-07-10 00:12 | Emergency (ER) | payer MEDICAID ==
[~2021-07-10 00:12] MED LIST changes: -METO10TA3 PO; +MTC10T PO; -SULF1TAB35 PO; +SULF1TAB38 PO
[2021-07-10 00:36] LABS: BILIRUBIN,URINE NEGATIVE (NEGATIVE); CLARITY,URINE SL CLOUDY; COLOR,URINE YELLOW; GLUCOSE, URINE (UA) NEGATIVE (NEGATIVE); KETONES,URINE NEGATIVE (NEGATIVE); LEUKOCYTE ESTERASE ,URINE 1+ (NEGATIVE); NITRITE,URINE NEGATIVE (NEGATIVE); PROTEIN,URINE NEGATIVE (NEGATIVE)
[2021-07-10 00:44] LABS: BACTERIA,URINE MODERATE /HPF
[2021-07-10] MEDS ORDERED: NAPR500T8 PO (00:57)
[2021-07-10] MEDS ORDERED: CIPR500T5 PO (00:57)
[2021-07-10] MEDS ORDERED: ONDA4TAB11 PO (00:57)
--- NOTE | 2021-07-10 00:58 | ED GU-Female ---
General Chief Complaint: - Reproductive Stated Complaint: BLADDER PAIN Nursing Triage Note: TO ED VIA POV AND AMBULATORY TO ROOM 6 WITH C/O "BLADDER HURTING FOR 4 WEEKS". RECENTLY TREATED FOR CHLAMYDIA & GONORRHEA. DENIES BURNING WITH URINATION, BUT DOES HAVE FREQUENCY WITH URINATION. Source: patient History of Present Illness Date Seen by Provider: Jul 10, 2021 Time Seen by Provider: 00:26 Initial Comments PT ARRIVES VIA POV FROM HOME, WITH FEMALE FRIEND C/O "BLADDER PAIN" X 5 WEEKS C/O ALOT OF PRESSURE OVER BLADDER, URGENCY, FREQUENCY, SMALL AMOUNTS. NO BURNING ON URINATION HAS MILD NAUSEA OFF AND ON, BUT NO VOMITING NO FEVER AT ANY TIME SYMPTOMS WORSE WITH LAYING FLAT SHE STATES INITIALLY, SHE HAD VAGINAL DISCHARGE, AND WAS SEEN AT THE WALK IN CLINIC AT [facility] ON 06/08/21 SHE SHE WAS DX WITH CHLAMYDIA AND UTI AT THAT TIME. HAD ROUTINE STD CHECK DONE, AND WAS GIVEN A SHOT OF ROCEPHIN, AND TOOK 2 ROUNDS OF ZITHROMAX ( SHE STATES THEY ACCIDENTALLY PRESCRIBED IT TWICE--ONCE ON 06/08/21 AND AGAIN ON 06/11/21, AND SHE TOOK IT TWICE ), SHE WAS ALSO PRESCRIBED MACROBID X 10 DAYS. PT STATES SHE HAS NOT HAD INTERCOURSE SINCE "SOMETIME BEFORE 5 WEEKS AGO" STATES SHE "DID NOT MESSAGE" THE MALE THAT SHE HAD SEX WITH THAT SHE HAD CHLAMYDIA. STATES SHE THEN GOT A YEAST INFECTION WITH ALOT OF ITCHING AND BURNING AND PAIN EXTERNALLY--WAS TREATED WITH DIFLUCAN PILLS X 2 DOSES THOSE SYMPTOMS HAVE GONE AWAY SHE HAS NOT HAD ANY VAGINAL DISCHARGE SINCE THEN SHE STATES SHE HAS CONTINUED TO HAVE SOME PRESSURE OVER HER BLADDER, AND URINARY SYMPTOMS WENT TO [facility] ER 1 WEEK AGO 07/02/21 FOR THIS COMPLAINT SHE HAD A PELVIC EXAM AND STD TESTING AGAIN THERE, AND PT REPORTS ALL TESTS CAME BACK NEGATIVE STATES SHE WAS TREATED WITH PYRIDIUM FOR BLADDER SYMPTOMS, BUT DID NOT HAVE A UTI AT THAT TIME SHE STATES SHE WAS ALSO GIVEN RX FOR METRONIDAZOLE 500 MG BID X 7 DAYS, DUE TO HISTORY OF FREQUENT BACTERIAL VAGINOSIS. PT STATES HER SYMPTOMS ARE NOT BETTER, BUT ARE NOT ANY WORSE EITHER SHE STATES PYRIDIUM DID NOT HELP HER SYMPTOMS AT ALL TOOK 2 IBUPROFEN THIS AM, WITHOUT RELIEF OTHERWISE HAS NOT TAKEN ANYTHING FOR SYMPTOMS HAS NOT ATTEMPTED TO FOLLOW UP WITH ANYONE SINCE THEN SYMPTOMS ARE NO DIFFERENT TONIGHT IN ANY WAY LMP--PT HAS BEEN SPOTTING OFF AND ON X 5 WEEKS. PT HAS HAD DEPO-PROVERA SHOT--HAS NO IDEA WHEN HER LAST SHOT WAS OR WHEN THE NEXT ONE IS DUE STATES SHE ONLY USES PANTILINERS AND IS ONLY LIGHT SPOTTING MOST OF THE TIME. PT HAS ONLY HAD 1 PAP SMEAR PT HAS NEVER SEEN A MOLDING ROOM SUPERVISOR PCP: KATINA-RAFI, BART TORCHIErika Allergies and Home Medications Allergies Coded Allergies: doxycycline (Verified Allergy, Unknown, 07/10/21) Patient Home Medication List Home Medication List Reviewed: Yes Brexpiprazole (Rexulti) 1 Mg Tablet, 1 MG PO DAILY, (Reported) Entered as Reported by: FILI COLBY on 06/08/19 1352 Ciprofloxacin HCl (Ciprofloxacin HCl) 500 Mg Tablet, 500 MG PO BID Prescribed by: JOSE COHEN on 07/10/2156 Docusate Sodium (Colace) 100 Mg Capsule, 100 MG PO BID Prescribed by: LINA LLAMAS on 08/05/19 09 Hydrocodone Bit/Acetaminophen (Lortab 5 Mg Tablet) 1 Tab Tab, 1-2 TAB PO Q6H PRN for PAIN-MODERATE Prescribed by: LINA LLAMAS on 08/05/19 09 Linaclotide (Linzess) 145 Mcg Capsule, 145 MCG PO DAILY, (Reported) Entered as Reported by: THAI VALLE on 06/07/19 09 Naproxen (Naproxen) 500 Mg Tablet.dr, 500 MG PO BID Prescribed by: JOSE COHEN on 07/10/2156 Ondansetron (Ondansetron Odt) 4 Mg Tab.rapdis, 4 MG PO Q4H Prescribed by: JOSE COHEN on 07/10/2156 Pantoprazole Sodium (Pantoprazole Sodium) 40 Mg Tablet.dr, 40 MG PO DAILY, (Reported) Entered as Reported by: THAI VALLE on 06/07/19 09 Promethazine HCl (Promethazine Tablet) 25 Mg Tablet, 25 MG PO Q6H PRN for NAUSEA/VOMITING Prescribed by: FERNANDA ANGEL on 11/22/19 1216 Venlafaxine HCl (Effexor Xr) 150 Mg Cap.er.24h, 150 MG PO DAILY, (Reported) Entered as Reported by: THAI VALLE on 06/07/19 0914 Review of Systems Review of Systems Constitutional: no symptoms reported; No fever EENTM: no symptoms reported Respiratory: no symptoms reported Cardiovascular: no symptoms reported Gastrointestinal: see HPI, nausea Genitourinary: see HPI : No Musculoskeletal: no symptoms reported Skin: no symptoms reported Psychiatric/Neurological: No Symptoms Reported Endocrine: No Symptoms Reported Hematologic/Lymphatic: No Symptoms Reported Past [id number]-Ahfggr-Bzpzxb Hx Patient Social History Tobacco Use?: Yes Tobacco type used: Cigarettes Smoking Status: Current Someday Smoker Additional substance use comme: 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 Alcohol Use?: Yes Alcohol Frequency: Once in a while Immunizations Up To Date Tetanus Booster (TDap): Less than 5yrs PED Vaccines UTD: Yes Influenza Vaccine Up-to-Date: No; Not Current Seasonal Allergies Seasonal Allergies: Yes Past Medical History Surgery/Hospitalization HX: SX: JAY; APPY Surgeries: Yes Appendectomy, Gallbladder Respiratory: No Currently Using CPAP: No Currently Using BIPAP: No Cardiac: No Neurological: No Reproductive Disorders: Yes Female Reproductive Disorders: Menstrual Problems Sexually Transmitted Disease: No HIV/AIDS: No Genitourinary: Yes Bladder Infection Gastrointestinal: Yes (epigastric pain; S/P JAY AND APPY) Gastroesophageal Reflux, Gall Bladder Disease Musculoskeletal: No Endocrine: No HEENT: No Cancer: No Psychosocial: Yes Anxiety, Depression Integumentary: No Blood Disorders: No Adverse Reaction/Blood Tranf: No Family Medical History Drug abuse 19 MOTHER (suicide attempts, from suicide attempt) Psychosocial problem G8 BROTHER ( from hit by car) Seizure disorder 19 FATHER No Pertinent Family Hx Physical Exam Vital Signs Vital Signs - First Documented 07/10/21 00:26 Temp 36.5 Pulse 95 Resp 16 B/P (MAP) 135/83 (100) Pulse Ox 98 O2 Delivery Room Air Capillary Refill : Less Than 3 Seconds Height, Weight, BMI Height: 5'4.00" Weight: 125lbs. 0.0oz. 56.503918un; 31.00 BMI Method:Stated General Appearance: WD/WN, no apparent distress, other (WALKS UPRIGHT AND MOVES WITHOUT DIFFICULTY. SITTING CITIZEN OF [place]. DOES NOT APPEAR TO BE IN ANY DISCOMFORT OR DISTRESS) Cardiovascular: regular rate, rhythm, no edema, no murmur Respiratory: normal breath sounds, no respiratory distress, no accessory muscle use Gastrointestinal: normal bowel sounds, soft; No distended, No guarding, No rebound; tenderness (MILD SUPRAPUBIC AND MILD BILATERAL FLANK TENDERNESS, AND MILD EPIGASTRIC TENDERNESS. ); No hernia, No mass Back: CVA tenderness (R), CVA tenderness (L) Extremities: normal inspection Neurologic/Psychiatric: no motor/sensory deficits, alert, normal mood/affect, oriented x 3 Skin: normal color, warm/dry Progress/Results/Core Measures Suspected Sepsis SIRS Temperature: Pulse: 95 Respiratory Rate: 16 Blood Pressure 135 /83 Mean: 100 Results/Orders Lab Results Laboratory Tests Test 07/10/21 00:27 Range/Units Urine Color YELLOW Urine Clarity SL CLOUDY Urine pH 6.0 5-9 Urine Specific [place] 1.020 1.016-1.022 Urine Protein NEGATIVE NEGATIVE Urine Glucose (UA) NEGATIVE NEGATIVE Urine Ketones NEGATIVE NEGATIVE Urine Nitrite NEGATIVE NEGATIVE Urine Bilirubin NEGATIVE NEGATIVE Urine Urobilinogen 0.2 < = 1.0 MG/DL Urine Leukocyte Esterase 1+ H NEGATIVE Urine RBC (Auto) 1+ H NEGATIVE Urine RBC 2-5 H /HPF Urine WBC 10-25 H /HPF Urine Squamous Epithelial Cells 2-5 /HPF Urine Crystals NONE /LPF Urine Bacteria MODERATE H /HPF Urine Casts NONE /LPF Urine Mucus MODERATE H /LPF Urine Culture Indicated YES My Orders Orders - JOSE COHEN DO Urine Bedside (07/10/21 00:27) Ua Culture If Indicated (07/10/21 00:27) Urine Culture (07/10/21 00:27) Ondansetron Oral Dissolve Tab (Zofran (07/10/21 01:00) Ceftriaxone (Rocephin) (07/10/21 01:00) Lidocaine 1% Inj 20 Ml (Xylocaine 1% Inj (07/10/21 01:00) Ketorolac Injection (Toradol Injection) (07/10/21 01:00) Medications Given in ED Current Medications Medications Dose Ordered Sig/Janet Route Start Time Stop Time Status Last Admin Dose Admin Ceftriaxone Sodium 1,000 mg ONCE ONCE IM 07/10/21 01:00 07/10/21 01:02 DC 07/10/21 01:01 1,000 MG Ketorolac Tromethamine 60 mg ONCE ONCE IM 07/10/21 01:00 07/10/21 01:02 DC 07/10/21 01:00 60 MG Lidocaine HCl 2.1 ml ONCE ONCE INJ 07/10/21 01:00 07/10/21 01:02 DC 07/10/21 01:01 2.1 ML Ondansetron HCl 4 mg ONCE ONCE PO 07/10/21 01:00 07/10/21 01:02 DC 07/10/21 01:00 4 MG Vital Signs/I&O 07/10/21 07/10/21 00:26 01:24 Temp 36.5 36.5 Pulse 95 95 Resp 16 16 B/P (MAP) 135/83 (100) 135/83 Pulse Ox 98 98 O2 Delivery Room Air Room Air Capillary Refill : Less Than 3 Seconds Blood Pressure Mean: 100 Progress Note : Progress Note DISCUSSED OPTION OF DOING ANOTHER PELVIC EXAM AND STD CHECK, BUT PT JUST HAD ONE ON 07/02/21 AND ALL TESTS WERE NEGATIVE AT THAT TIME, AND PT STATES SHE HAS NOT HAD INTERCOURSE SINCE SOMETIME PRIOR TO 5 WEEKS AGO, DO NOT FEEL IT IS NE CESSARY TO REPEAT THAT EXAM TONIGHT. PT DOES HAVE UTI ON UA TODAY, WILL CULTURE URINE, TREAT EMPIRICALLY WITH CIPRO UNTIL CULTURES COME BACK WILL HAVE HER FOLLOW UP WITH GYNECOLOGY FOR FURTHER EVALUATION. Departure Impression Primary Impression: Urinary tract infection Disposition: HOME, SELF-CARE Condition: Stable Departure-Patient Inst. Decision time for Depature: 00:54 Referrals: [facility] [place] Primary Care Physician ADRIÁN CARNES APRN (Family) Primary Care Physician JIMY NEELY DO Patient Instructions: Urinary Tract Infection, Adult (DC) Add. Discharge Instructions: LOTS OF CLEAR LIQUIDS--WATER, BROTH, JELLO, GATORADE NO COFFEE, POP OR TEA, NO CAFFEINATED DRINKS NOTHING IN VAGINA--NO TAMPONS, DOUCHING OR INTERCOURSE FOLLOW UP WITH DR. NEELY, MOLDING ROOM SUPERVISOR, IN 5-7 DAYS FOR FURTHER CARE RETURN TO ER IF SYMPTOMS WORSEN All discharge instructions reviewed with patient and/or family. Voiced und erstanding. Scripts Naproxen (Naproxen) 500 Mg Tablet. 500 MG PO BID, #20 TAB Prov: JOSE COHEN DO 07/10/21 Ondansetron (Ondansetron Odt) 4 Mg Tab.rapdis 4 MG PO Q4H for Nausea/Vomiting, #10 TAB Prov: JOSE COHEN DO 07/10/21 Ciprofloxacin HCl (Ciprofloxacin HCl) 500 Mg Tablet 500 MG PO BID, #20 TAB Prov: JOSE COHEN DO 07/10/21 JOSE COHEN DO Jul 10, 2021 00:58
[2021-07-10] MEDS ORDERED: ONDANSETRON 4 MG (ZOFRAN) ORAL DISSOLVE TAB PO ONE (01:00)
[2021-07-10] MEDS ORDERED: cefTRIAXone 1,000 MG VIAL IM ONE (01:00)
[2021-07-10] MEDS ORDERED: LIDOCAINE 1% INJ 20 ML 20 ML VIAL INJ ONE (01:00)
[2021-07-10] MEDS ORDERED: KETOROLAC 60 MG/2 ML VIAL IM ONE (01:00)
[2021-07-10 01:24] VITALS: BP 135/83
== END 2021-07-10 01:24 | disposition home or self-care (01) ==
LOC: EDUNIT# 00:12 → ER 00:17
DX: N39.0 Urinary tract infection, site not specified (principal); K21.9 Gastro-esophageal reflux disease without esophagitis; F41.9 Anxiety disorder, unspecified; F32.9 Major depressive disorder, single episode, unspecified; F17.210 Nicotine dependence, cigarettes, uncomplicated; Z79.899 Other long term (current) drug therapy
CPT/HCPCS: 81000; 84703; 87088; 99284

== ENCOUNTER → 2021-10-10 | Outpatient (CLI) | payer MEDICAID ==
[~2021-10-10] MED LIST changes: +CIPR500T5 PO; +NAPR500T8 PO; +ONDA4TAB11 PO
--- NOTE | 2021-10-10 14:12 | Diagnostic Imaging Report ---
PROCEDURE: Pelvic comp/transvaginal sonogram. TECHNIQUE: Complete transabdominal and transvaginal pelvic ultrasound was performed. In addition, limited pelvic Doppler was performed. INDICATION: Acute pelvic pain. Uterus is anteverted measuring 7.4 x 3.4 x 4.3 cm. Endometrium is 3 mm in thickness. No myometrial mass is identified. Right ovary measures 3.0 x 2.3 x 2.6 cm and left ovary measures 3.2 x 1.6 x 2.7 cm. Both ovaries contain small follicles. There is blood flow to both ovaries. No adnexal mass or free fluid is detected. IMPRESSION: Unremarkable transabdominal and transvaginal pelvic ultrasound. Dictated by: Dictated on workstation # [id number]
== END ==
LOC: RAD 13:00
PROVIDERS: ATTEND Nurse Practitioner Women's Health
DX: R10.2 Pelvic and perineal pain (principal)
CPT/HCPCS: 76830; 76856

== ENCOUNTER 2022-03-04 05:29 | Outpatient (CLI) | payer MEDICAID ==
[~2022-03-04] VITALS: Ht 162.5 cm; Wt 70.0 kg
[~2022-03-04 05:29] MED LIST changes: -VENL150C PO; +VENL150C3 PO
[2022-03-04] MEDS ORDERED: LACT1CAP74 PO (16:03)
[2022-03-04] MEDS ORDERED: LAMO25TA75 PO (16:03)
== END 2022-03-04 16:09 | disposition home or self-care (01) ==
LOC: PREOP 05:29
PROVIDERS: ATTEND Obstetrics & Gynecology
DX: Z01.818 Encounter for other preprocedural examination (principal)

== ENCOUNTER 2022-03-11 07:41 | Day surgery (SDC) | payer MEDICAID ==
[2022-03-11] VITALS (11 sets, daily range): BP systolic 101–113; BP diastolic 51–86
[~2022-03-11] VITALS: Ht 162.5 cm; Wt 70.0 kg
[~2022-03-11 07:41] MED LIST changes: +LACT1CAP74 PO; +LAMO25TA75 PO
[2022-03-11] MEDS ORDERED: BUPIVACAINE 0.25% 30 ML (SENSORCAINE) VIAL ONE (07:44)
[2022-03-11] MEDS ORDERED: MIDAZOLAM 2 MG/2 ML (VERSED) VIAL ONE (07:58)
[2022-03-11] MEDS ORDERED: ROCURONIUM 50 MG/5 ML (ZEMURON) VIAL IV ONE (07:58)
[2022-03-11] MEDS ORDERED: LIDOCAINE PF 2% 5 ML (XYLOCAINE) VIAL ONE (07:58)
[2022-03-11] MEDS ORDERED: proPOfol 200 MG/20 ML (DIPRIVAN) VIAL IV ONE (07:58)
[2022-03-11] MEDS ORDERED: ONDANSETRON 4 MG/2 ML (SDV) Z0FRAN ONE (07:58)
[2022-03-11] MEDS ORDERED: fentaNYL INJ 100 MCG/2 ML AMP ONE ×2 (07:58→09:49)
[2022-03-11 08:33] LABS: BASOPHILS % (AUTO) 0 % (0-10); EOSINOPHILS # (AUTO) 0.2 10^3/uL (0.0-0.3); EOSINOPHILS % (AUTO) 2 % (0-10); HEMATOCRIT 39 % (35-52); HEMOGLOBIN 13.8 g/dL (11.5-16.0); LYMPHOCYTES # (AUTO) 2.5 10^3/uL (1.0-4.0); LYMPHOCYTES % (AUTO) 29 % (12-44); MEAN CORPUSCULAR HEMOGLOBIN 32 pg (25-34); MEAN CORPUSCULAR HGB CONC 35 g/dL (32-36); MEAN CORPUSCULAR VOLUME 90 fL (80-99); MEAN PLATELET VOLUME 9.8 fL (9.0-12.2); MONOCYTES # (AUTO) 0.7 10^3/uL (0.0-1.0); MONOCYTES % (AUTO) 8 % (0-12); NEUTROPHILS # (AUTO) 5.2 10^3/uL (1.8-7.8); NEUTROPHILS % (AUTO) 61 % (42-75); PLATELET COUNT 237 10^3/uL (130-400); WHITE BLOOD COUNT 8.7 10^3/uL (4.3-11.0)
[2022-03-11] MEDS ORDERED: LACTATED RINGERS 1,000 ML IV PRN (08:45)
--- NOTE | 2022-03-11 09:05 | Discharge Inst-Women's Service ---
Discharge Inst-Women's Serv Depart Medication/Instructions New, Converted or Re-Newed RX: Transmitted to Pharmacy Problems Reviewed?: Yes Consults/Follow Up Additional Follow Up: Yes Activity Activity: Activity as Tolerated Driving Instructions: No Driving for 1 Week NO SMOKING: NO SMOKING Nothing Inside Vagina: No Douching, No [place], No Tampons Diet Discharge Diet: No Restrictions Symptoms to Report to : Bleeding Excessive, Pain Increased, Fever Over 101 Degrees F, Vaginal Bleeding Increase, Questions/Concerns For Any Problems or Questions: Contact Your Physician Skin/Wound Care Infection Signs and Symptoms: Increased Redness, Foul Odor of Wound, Increased Drainage, Skin Itchy or Has a Rash, Increased Swelling, Temperature Above 101 F Operative Area Clean and Dry: Keep Incision Clean/Dry Stitches/[place]/Dermabond: Dermabond, Care of Stitches Bathing Instructions: MAR Galloway DO Mar 11, 2022 09:05
[2022-03-11] MEDS ORDERED: IBUP-1773 PO (09:06)
[2022-03-11] MEDS ORDERED: ACHD5005 PO (09:06)
[2022-03-11] MEDS ORDERED: ONDANSETRON 4 MG/2 ML (SDV) Z0FRAN IVP PRN ×2 (09:15→09:45)
[2022-03-11] MEDS ORDERED: HYDROcodone/APAP 5 MG/325 MG (LORTAB) TAB PO PRN (09:15)
[2022-03-11] MEDS ORDERED: KETOROLAC 30 MG/ML VIAL IVP ONE (09:15)
[2022-03-11] MEDS ORDERED: D5 LR IV SOLUTION 1,000 ML IV SCH (09:15)
--- NOTE | 2022-03-11 09:43 | Anesthesia-General Post-Op ---
General Patient Condition Mental Status/LOC: Same as Preop Cardiovascular: Satisfactory Nausea/Vomiting: Absent Respiratory: Satisfactory Pain: Controlled Complications: Absent Post Op Complications Complications None Follow Up Care/Instructions Patient Instructions None needed. Anesthesia/Patient Condition Patient Condition Patient is doing well, no complaints, stable vital signs, no apparent adverse anesthesia problems. No complications reported per nursing. MARTINEZ ROJO CRNA Mar 11, 2022 09:43
[2022-03-11] MEDS ORDERED: fentaNYL INJ 100 MCG/2 ML AMP IVP ONE (09:45)
[2022-03-11] MEDS ORDERED: GLYCOPYRROLATE 0.2 MG/ML (ROBINUL) 2 ML VIAL ONE (11:37)
--- NOTE | 2022-03-11 12:56 | OPERATIVE REPORT ---
DATE OF SERVICE: PREOPERATIVE DIAGNOSES: 1. A 26-year-old female with chronic pelvic pain. 2. Dysmenorrhea. 3. Dysuria. POSTOPERATIVE DIAGNOSES: 1. A 26-year-old female with chronic pelvic pain. 2. Dysmenorrhea. 3. Dysuria. PROCEDURE PERFORMED: Diagnostic laparoscopy. SURGEON: Mra Wong DO. ANESTHESIA: General endotracheal. ESTIMATED BLOOD LOSS: Minimal. URINE OUTPUT: 75 mL clear at the end of the procedure. FLUIDS: 800 mL lactated Ringer's solution. FINDINGS: A grossly normal appearing external female genitalia, grossly normal-appearing uterus, bilateral fallopian tubes and ovaries and upper abdominal anatomy. SPECIMEN SENT: None. INDICATIONS FOR PROCEDURE: This 26-year-old female is a patient, who had sought care in my office for chronic pelvic pain. She describes what sounded like dysuria and bladder spasm and pain, which occurred when she urinates or empties her bladder. She was sent to urology for further evaluation. Neurology did not find any type of underlying pathology. Therefore, the synovectomy further ruling out possibility of endometriosis. Upon evaluating the patient, I discussed with the patient proceeding with a diagnostic laparoscopy. Ultrasound did not reveal any extra information that would lead me to believe endometriosis was her underlying problem. I discussed with the patient the risk of surgery including bleeding, infection, damage to the surrounding structures including, but not limited to bowel, bladder, ureter, kidneys, possible need for reoperation, postoperative complications that may occur, risk from her anesthesia, and recovery timeframe. After everything was discussed with the patient in detail, consent was obtained in the preoperative area, and the patient was taken to the operating room. OPERATIVE REPORT IN DETAIL: Once in the operating room, anesthesia was found to be adequate. She was placed in the dorsal lithotomy position, prepped and draped in normal sterile fashion. Timeout was performed. A Chang catheter was placed using a sterile technique. A weighted speculum was inserted in the patient's vagina. Right angle retractor was used to visualize the cervix, which was grasped at 12 o'clock position using a long Allis clamp. I then placed a Kronner uterine manipulator to a depth of 8 cm after gently sounding the uterine cavity, depth to 8 cm. Once this Kronner was in place, I removed all the other instruments from the patient's vagina, performed change of gloves, turned my attention to the abdomen, where subcostally at the midclavicular line, I introduced the Veress needle until intraperitoneal placement was confirmed using saline drop test. An opening pressure of 5 mmHg was noted. I proceeded to a maximum pressure of 15 mmHg using CO2 gas, at which point, I made an infraumbilical incision. This was a 5 mm incision. I directed a blunt laparoscopic 5 mm trocar through the incision until intraperitoneal placement was confirmed using the laparoscope. There was no evidence of damage from entry site. There was no evidence of damage in the left upper quadrant and the Veress needle was removed under direct visualization of the laparoscope. I then had the patient placed in a steep Trendelenburg after I briefly scanned the upper abdominal anatomy, which appears to be grossly normal. Once the patient in a steep Trendelenburg, I was able to visualize all my pelvic anatomy as defined in my findings above. The uterus, bilateral fallopian tubes, and ovaries were all within normal limits. The serosa was smooth and clean with no evidence of endometriosis. The anterior and posterior cul-de-sac are both very closely evaluated and there are no abnormalities noted. At that point, I deemed the procedure complete. I removed the camera and released insufflation through the infraumbilical trocar site. I then introduced 10 mL of 0.25% Marcaine in the peritoneal cavity for postoperative pain management and removed this trocar. The skin was reapproximated using Dermabond. Band-Aids were placed over the incisions. The Chang catheter and Kronner uterine manipulator were removed at the end of the procedure. The patient tolerated the procedure well and was sent to the recovery area in stable condition. Lap and sponge counts were correct at the end of the procedure. Instrument counts were correct as well. Job ID: [id number] DocumentID: [id number] Dictated Date: 03/11/2022 09:55:02 Airframe And Powerplant Mechanic Date: 03/11/2022 12:54:19 Dictated By: MAR WONG DO
== END 2022-03-11 12:00 | disposition home or self-care (01) ==
LOC: SDC 07:41
PROVIDERS: ATTEND Obstetrics & Gynecology
DX: N94.6 Dysmenorrhea, unspecified (principal); G89.29 Other chronic pain
CPT/HCPCS: 36415; 84703; 85025; 86850; 86900; 86901; 87081

== ENCOUNTER 2022-12-17 20:20 | Emergency (ER) | payer MEDICAID ==
[~2022-12-17] VITALS: Ht 162.5 cm; Wt 58.9 kg
--- NOTE | 2022-12-17 20:45 | ED Pediatric Illness ---
HPI-Pediatric Illness General Chief Complaint: Bite-Animal/Human/Insect Stated Complaint: SPIDER BITE Nursing Triage Note: STATES "SPIDER BITE" FRIDAY LEFT UPPER GROIN. STATES SMALL "PIMPLE" AND HAS GROWN. PUT CREAM ON AREA, AREA HAS GROWN IN SIZE, PAINFUL. REDNESS AROUND SITE. Source: patient Exam Limitations: no limitations (JOSE SANDHU) History of Present Illness Date Seen by Provider: December 17, 2022 Time Seen by Provider: 20:42 Initial Comments Patient is a 27-year-old female presents ED with a potential spider bite to her left groin. Patient states she noted a small red papule . Increased size and pain. Surrounding redness and swelling. Denies of any fever, chills, nausea vomiting, diarrhea. Denies of any specific injury. (JOSE SANDHU) Allergies and Home Medications Allergies Coded Allergies: doxycycline (Verified Adverse Reaction, Unknown, NAUSEATE, 03/04/22) Patient Home Medication List Home Medication List Reviewed: Yes (JOSE SANDHU) Hydrocodone/Acetaminophen (Hydrocodone-Acetamin 5-325 mg) 5 Mg-325 Mg Tablet, 1- 2 TAB PO Q6H PRN for PAIN-MODERATE (5-7) Prescribed by: MAR WONG on 03/11/22 09 Ibuprofen (Ibuprofen) 600 Mg Tablet, 600 MG PO Q6H Prescribed by: MAR WONG on 03/11/22 09 Lactobacillus Combination No.4 (Probiotic) Unknown Strength Capsule, Unknown Dose PO, (Reported) Entered as Reported by: DIANE LANTIGUA on 03/04/22 160 Lamotrigine (Lamictal) 25 Mg Tablet, 25 MG PO DAILY, (Reported) Entered as Reported by: DIANE LANTIGUA on 03/04/22 160 Sulfamethoxazole/Trimethoprim (Bactrim Ds Tablet) 800 Mg-160 Mg Tablet, 1 EACH PO BID Prescribed by: ROBIN FINCH on 12/17/222108 Review of Systems Review of Systems Constitutional: No chills, No diaphoresis EENTM: No hearing loss, No ear pain, No blurred vision, No double vision Respiratory: No cough, No dyspnea on exertion Cardiovascular: No chest pain Gastrointestinal: No abdominal pain, No diarrhea, No vomiting Genitourinary: No decreased output, No discharge Musculoskeletal: No back pain, No joint pain, No joint swelling, No muscle pain Skin: change in color (JOSE SANDHU) All Other Systems Reviewed Negative Unless Noted: Yes (JOSE SANDHU) PMH-Pediatrics Tetanus Booster (TDap): Less than 5yrs Date of Influenza Vaccine: May 21, 2019 (JOSE SANDHU) Seasonal Allergies: Yes (JOSE SANDHU) HX Surgeries: No (JOSE SANDHU) Hx Respiratory Disorders: No (JOSE SANDHU) Hx Cardiovascular Disorders: No (JOSE SANDHU) Hx Neurological Disorders: No (JOSE SANDHU) Hx Reproductive Disorders: Yes Sexually Transmitted Disease: No HIV/AIDS: No Female Reproductive Disorders: Menstrual Problems (JOSE SANDHU) Hx Genitourinary Disorders: Yes Genitourinary Disorders: Bladder Infection, UTI-Chronic (JOSE SANDHU) Hx Gastrointestinal Disorders: No Gastrointestinal Disorders: Gastroesophageal Reflux, Gall Bladder Disease (JOSE SANDHU) Hx Musculoskeletal Disorders: No (JOSE SANDHU) Hx Endocrine Disorders: No (JOSE SANDHU PA) HX ENT Disorders: No (JOSE SANDHU) Hx Cancer: No (JOSE SANDHU PA) Hx Psychiatric Problems: Yes Behavioral Health Disorders: Anxiety, Depression (JOSE SANDHU) HX Skin/Integumentary Disorder: No (JOSE SANDHU PA) Hx Blood Disorders: No Adverse Reaction to a Blood Tr: No (JOSE SANDHU) Significant Family History: No Pertinent Family Hx (JOSE SANDHU) Patient History: Drug abuse 19 MOTHER (suicide attempts, from suicide attempt) Psychosocial problem G8 BROTHER ( from hit by car) Seizure disorder 19 FATHER Physical Exam-Pediatric Physical Exam Vital Signs - First Documented 12/17/22 20:27 Temp 35.4 Pulse 75 Resp 20 B/P (MAP) 106/72 (83) Pulse Ox 99 O2 Delivery Room Air (BARB OLIVO MD) Capillary Refill : Less Than 3 Seconds (JOSE SANDHU) Height, Weight, BMI Height: 5'4.00" Weight: 125lbs. 0.0oz. 56.677947ph; 22.00 BMI Method:Stated General Appearance: active HENT: PERRL, TMs normal, nose normal Neck: non-tender, full range of motion Respiratory: chest non-tender, lungs clear, normal breath sounds, no respiratory distress, no accessory muscle use Cardiovascular: regular rate, rhythm, no edema, no gallop, no JVD Gastrointestinal: normal bowel sounds, non tender, soft, no organomegaly Extremities: normal range of motion, non-tender, normal inspection, no pedal edema, no calf tenderness Neurologic/Psychiatric: mold forms builder II-XII nml as tested, no motor/sensory deficits, alert, normal mood/affect, oriented x 3 Skin: other (2 x 2 cm function at the left groin. No surrounding redness or swelling. Tender to palpate) (JOSE SANDHU) Procedures/Interventions I&D : Blade Size: 11 I & D Procedure: betadine prep Packing/Drain: Idoform 07/24 Progress Anesthesia 1% lidocaine 5ml. large amount of purulent drainage from abscess. (JOSE SANDHU) Progress/Results/Core Measures Results/Orders Medications Given in ED Current Medications Medications Dose Ordered Sig/Janet Route Start Time Stop Time Status Last Admin Dose Admin Lidocaine HCl 20 ml ONCE ONCE INJ 12/17/22 21:00 12/17/22 21:01 DC 12/17/22 20:56 20 ML (BARB OLIVO MD) Vital Signs/I&O 12/17/22 12/17/22 20:27 21:23 Temp 35.4 Pulse 75 75 Resp 20 20 B/P (MAP) 106/72 (83) 106/72 Pulse Ox 99 99 O2 Delivery Room Air Room Air (BARB OLIVO MD) Blood Pressure Mean: 83 Departure Communication (PCP) Reviewed previous ER visits, H&P, lab testing. Differential diagnosis abscess, cellulitis. Patient does not appear toxic or septic. patient with a 2 x 2 centimeter fluctuant mass upper inner thigh.. Incision and drainage with moderate amount of purulent bloody drainage. Iodoform packing was placed. Procedure document note. Concerning for staph infection. Patient will be discharged with Bactrim. Remove packing in 2 days. Recommend return back to ED for removal. localized surrounding erythema. Area was marked. If increasing pain, redness or swelling to return back to ED. Topical Neosporin. Discussed wound care. (JOSE SANDHU) Impression Primary Impression: Abscess Disposition: 01 HOME, SELF-CARE Condition: Stable Departure-Patient Inst. Decision time for Depature: 21:09 (JOSE SANDHU) Referrals: [facility] [place] ([place]P/Family) Primary Care Physician Patient Instructions: Abscess Incision and Drainage (DC) Add. Discharge Instructions: Remove packing in 2 days. If increased redness or swelling to return back to ED All discharge instructions reviewed with patient and/or family. Voiced understanding. Scripts Sulfamethoxazole/Trimethoprim (Bactrim Ds Tablet) 800 Mg-160 Mg Tablet 1 EACH PO BID for 7 Days, #14 TAB Prov: JOSE SANDHU 12/17/22 ATTENDING PHYSICIAN NOTE: I was physically present as attending physician in the emergency department during the care of this patient, but I was not directly involved in the decision making or delivery of care for this patient. (BARB OLIVO MD) JOSE SANDHU December 17, 2022 20:45 BARB OLIVO MD December 18, 2022 02:45
[2022-12-17] MEDS ORDERED: LIDOCAINE 1% INJ 20 ML VIAL INJ ONE (21:00)
[2022-12-17] MEDS ORDERED: TRIM/SULFAMETH 160/800 (SEPTRA DS) TAB PO STA (21:08)
[2022-12-17] MEDS ORDERED: SULF-221 PO (21:09)
[2022-12-17 21:23] VITALS: BP 106/72
== END 2022-12-17 21:24 | disposition home or self-care (01) ==
LOC: EDUNIT# 20:20 → ER 20:21
DX: L02.214 Cutaneous abscess of groin (principal); Z88.1 Allergy status to other antibiotic agents; Z28.310 Unvaccinated for COVID-19
CPT/HCPCS: 10061

== ENCOUNTER → 2023-04-30 | Outpatient (CLI) | payer MEDICAID ==
[~2023-04-30] MED LIST changes: +FAMO-356 PO; -FAMO20TA3 PO; +SULF-221 PO
--- NOTE | 2023-04-30 11:51 | Diagnostic Imaging Report ---
INDICATION: patient, survey. TECHNIQUE: Multiple Real-time grayscale images were obtained over the gravid uterus. COMPARISON: None during this . FINDINGS: There is a single live intrauterine fetus measuring 19 weeks 5 days by composite measurements. The fetus is in transverse presentation with the head to the maternal left. Sonographic EDC is 09/19/2023. The amniotic fluid index is normal at 10.47 cm. The placenta is posterior with no evidence of previa. The heart rate is 161 BPM. The survey shows normal-appearing kidneys and bladder. A normal-appearing stomach was seen. The intracranial ventricles appear normal. The four-chamber heart view appears normal. The three-vessel cord and cord insertion appear normal. Views of the spine are unremarkable. The maternal adnexa were not well seen. The cervical length is 3.7 cm. The distance from the internal os to the placental tip is about 6.2 cm. Biometrical measurements are as follows: Biparietal 4.32 cm, age 19 weeks 1 days. Head circumference 16.84 cm, age 19 weeks 4 days. Abdominal circumference 15.46 cm, age 20 weeks 5 days. Femur length 2.92 cm, age 19 weeks 0 days. Sonographic estimate age: 19 weeks 5 days. Sonographic estimated date of delivery: 09/19/2023. Estimated Weight: 314 gm (+/- 46 gm). LMP percentile: 89%. heart rate: 161 beats per minute. number: 1 of 1. IMPRESSION: Single live intrauterine fetus measuring 19 weeks 5 days by composite measurements. There is no detectable abnormality. Dictated by: Dictated on workstation # [id number]
== END ==
LOC: RAD 09:53
PROVIDERS: ATTEND Nurse Practitioner Women's Health
DX: Z36.9 Encounter for antenatal screening, unspecified (principal); Z3A.19 19 weeks gestation of pregnancy
CPT/HCPCS: 76805

== ENCOUNTER → 2023-05-08 | Outpatient (CLI) | payer MEDICAID | LOC: CARD 13:30 | PROVIDERS: ATTEND Internal Medicine Cardiovascular Disease | DX: I34.0 Nonrheumatic mitral (valve) insufficiency (principal) | CPT/HCPCS: 93306 ==